=== PATIENT | male | born 1965 | race Caucasian/White ===

== ENCOUNTER 2024-08-11 22:26 | Inpatient (IN) | payer BC, SELFPAY ==
--- NOTE | ~2024-08-11 | XR_ITS ---
EXAMINATION: XR chest 1V portable DATE: 08/11/2024 22:44 INDICATION: Chest pain TECHNIQUE: frontal view of the chest was obtained. COMPARISON: Chest radiograph dated 10/09/2013 FINDINGS: Calcified nodule in the lateral right midlung zone consistent with old granulomatous disease. Pulmona ry vascular congestion without elba pulmonary edema. No other airspace opacities, pleural effusion o r pneumothorax. The cardiomediastinal silhouette is normal. Visualized bones and soft tissues are unr emarkable. IMPRESSION: 1. Pulmonary vascular congestion without elba pulmonary edema. Reviewed, dictated and finalized at location [facility]. [facility]
[2024-08-11 22:20] VITALS: BP 141/95; PULSE 66; RESP 15; TEMP 36.6; O2SAT 99
[2024-08-11 22:29] VITALS: BP 144/99; PULSE 63; PULSE 72; RESP 14; O2SAT 100; O2SAT 96
--- NOTE | 2024-08-11 22:30 | ECG_ITS ---
Test Date: 2024-08-11 22:45:38 Measurements Intervals [place] Rate: 63 P: 38 [place]: 134 QRS: 32 QRSD: 110 T: 50 QT: 391 QTc: 400 Interpretive Statements SINUS RHYTHM INTRAVENTRICULAR CONDUCTION DELAY CANNOT R/O SEPTAL INFARCT, AGE INDETERMINATE ANTERIOR ST ELEVATION MYOCARDIAL INJURY- ACUTE BASELINE ARTIFACT- I, II, AVR, AVL, AVF ABNORMAL ECG No previous ECG available for comparison Electronically Signed On 08-12-2024 06:33:05 SUPERVISOR WHEEL [employer]OP by Jason Laguna D.O.
[2024-08-11 22:32] LABS: Glucose Point of Care 193 mg/dl (65-105)
[2024-08-11] MEDS: HEPARIN SODIUM 5,000 UNITS/ML VIAL 4000 UNITS IV PUSH (22:34)
[2024-08-11] MEDS: MORPHINE SULFATE (*CRX) 4 MG/ML INJ IV PUSH (22:35)
[2024-08-11] MEDS: HEPARIN SOD/D5W 100 UNITS/ML 25,000 UNITS/250 ML BAG 9 UNITS IV CONT (22:39)
[2024-08-11 22:40] LABS: Basophils Absolute Auto 0.1 K/mm3 (0.0-0.1); Basophils Percent Auto 1.1 % (0.2-1.2); Eosinophils Absolute Auto 0.4 K/mm3 (0-0.3); Eosinophils Percent Auto 3.1 % (0-4.4); Hematocrit 45.5 % (42.0-52.0); Hemoglobin 15.6 g/dL (14.0-18.0); Immature Granulocyte Absolute 0.02 K/mm3 (0.00-0.031); Immature Granulocyte Percent A 0.2 % (0-0.5); Lymphocytes Absolute Auto 3.89 K/mm3 (0.9-3.2); Lymphocytes Percent Auto 34.6 % (18.3-44.2); Mean Corpuscular HGB Conc 34.3 g/dl (32-36); Mean Corpuscular Hemoglobin 31.1 pg (26-34); Mean Corpuscular Volume 90.6 fl (80-100); Mean Platelet Volume 10.2 fl (7.4-10.4); Monocytes Absolute Auto 1.4 K/mm3 (0.1-0.6); Monocytes Percent Auto 12.1 % (2.6-8.5); Neutrophils Absolute Auto 5.5 K/mm3 (1.3-6.7); Neutrophils Percent Auto 48.9 % (45.5-73.1); Platelet Count Result 240 k/mm3 (150-375); Red Blood Count 5.02 M/mm3 (4.6-6.20); Red Cell Distribution Width 14.2 % (11.5-14.5); White Blood Count 11.2 K/mm3 (4.5-10.0)
--- NOTE | 2024-08-11 22:40 | ED_ITS ---
HPI - General Adult General Chief complaint: Chest Pain Stated complaint: STEMI History of Present Illness HPI narrative: Patient is a 58-year-old gentleman who presents emergency department with chief complaint of chest pain. Patient reports that he started having a burning like sensation heaviness sensation yesterday the sick patient reports that he has been on and off reports that it has not really improved by anything worsened by anything the patient was given aspirin and nitro in the field by EMS the patient states that his discomfort is a little bit better of the reports that he still having some discomfort. The patient also reports that he has prior history of abdominal aortic aneurysm Related Data Allergies Allergy/AdvReac Type Severity Reaction Status Date / Time No Known Allergies Allergy Mild Verified 08/11/24 22:29 Review of Systems Review of Systems: A 10 system review of systems was completed on the patient and is negative except for what is stated in the HPI. Nursing and ancillary documentation was reviewed. Exam Narrative: GENERAL: Well-appearing, well-nourished, and in no acute distress. HEAD: Normocephalic, atraumatic. EYES: PERRLA and EOMI. ENT: Nares clear, no rhinorrhea or epistaxis. Mucous membranes moist. NECK: Supple. CHEST: Clear to auscultation. No respiratory distress. HEART: Regular rate and rhythm. No murmur heard. Normal peripheral pulses. ABDOMEN: Soft, nontender, nondistended, normal active bowel sounds. EXTREMITIES: Normal range of motion. No edema. SKIN: Warm, dry, no rash. NEURO: No focal deficits. Alert and oriented x3. PSYCH: Normal mood and affect. Course Vital Signs Vital signs: Vital Signs Temperature 36.6 C 08/11/24 22:20 Pulse Rate 66 08/11/24 22:20 Respiratory Rate 15 08/11/24 22:20 Blood Pressure 141/95 H 08/11/24 22:20 Pulse Oximetry 99 08/11/24 22:20 Oxygen Delivery Room Air 08/11/24 22:20 Temperature 36.6 C 08/11/24 22:20 Pulse Rate 63 08/11/24 22:29 Respiratory Rate 14 08/11/24 22:29 Blood Pressure 144/99 H 08/11/24 22:29 Pulse Oximetry 96 08/11/24 22:29 Oxygen Delivery Room Air 08/11/24 22:29 Medical Decision Making [facility] Narrative Medical decision making narrative: Differential diagnosis includes unstable angina, ST-elevation VT, non-STEMI Pre-hospital EKG showed ST elevation concerning for possible ST-elevation VT. The patient was brought in as a activation of a STEMI alert on the patient upon arrival to our facility EKG showed no significant ST elevation. This was discussed with the manager port to his reviewed both the pre- hospital EKG and the initial EKG at our facility at this time the plan will be to control the patient's pain and repeat EKG and start heparin on the patient. Repeat EKG showed ST elevations present and V3 V4 V5. This was rediscussed with Interventional Cardiology who will take patient to the laboratory assistant as a activated ST-elevation VT Vital Signs Vital Signs: Vital Signs Temperature 36.6 C 08/11/24 22:20 Pulse Rate 66 08/11/24 22:20 Respiratory Rate 15 08/11/24 22:20 Blood Pressure 141/95 H 08/11/24 22:20 Pulse Oximetry 99 08/11/24 22:20 Oxygen Delivery Room Air 08/11/24 22:20 Temperature 36.6 C 08/11/24 22:20 Pulse Rate 63 08/11/24 22:29 Respiratory Rate 14 08/11/24 22:29 Blood Pressure 144/99 H 08/11/24 22:29 Pulse Oximetry 96 08/11/24 22:29 Oxygen Delivery Room Air 08/11/24 22:29 Lab Data 08/11/24 22:35 08/11/24 22:35 Labs: Lab Results 08/11/24 08/11/24 Range/Units 22:29 22:35 WBC 11.2 H (4.5-10.0) K/mm3 RBC 5.02 (4.6-6.20) M/mm3 Hgb 15.6 (14.0-18.0) g/dL Hct 45.5 (42.0-52.0) % MCV 90.6 (80-100) fl MCH 31.1 (26-34) pg MCHC 34.3 (32-36) g/dl RDW 14.2 (11.5-14.5) % Plt Count 240 (150-375) k/mm3 MPV 10.2 (7.4-10.4) fl Immature Gran % (Auto) 0.2 (0-0.5) % Neut % (Auto) 48.9 (45.5-73.1) % Lymph % (Auto) 34.6 (18.3-44.2) % [place] % (Auto) 12.1 H (2.6-8.5) % Eos % (Auto) 3.1 (0-4.4) % Baso % (Auto) 1.1 (0.2-1.2) % Lymph # (Auto) 3.89 H (0.9-3.2) K/mm3 [place] # (Auto) 1.4 H (0.1-0.6) K/mm3 Eos # (Auto) 0.4 H (0-0.3) K/mm3 Baso # (Auto) 0.1 (0.0-0.1) K/mm3 Abs Immat Gran (auto) 0.02 (0.00-0.031) K/mm3 Absolute Neuts (auto) 5.5 (1.3-6.7) K/mm3 Absolute Nucleated RBC 0.000 (0.0-0.012) K/mm3 Nucleated RBC % 0.0 (0.0-0.2) % PT 13.5 (11.1-14.7) Seconds INR 1.0 APTT 28.2 (22.3-36.8) Seconds Sodium 142 (137-145) mmol/L Potassium 3.9 (3.4-5.0) mmol/L Chloride 108 H (98-107) mmol/L Carbon Dioxide 22 (22-30) mmol/L Anion Gap 12 (4-12) mmol/L BUN 24 H (9-20) mg/dL Creatinine 1.00 (0.7-1.3) mg/dL Estim Creat Clear Calc 72 ml/min Estimated GFR > 60 (59 - ) Glucose 201 H (65-110) mg/dL POC Capillary Glucose 193 H (65-105) mg/dl Calcium 9.3 (8.4-10.2) mg/dL Total Bilirubin 0.4 (0.2-1.3) mg/dL AST 43 (17-59) U/L ALT 30 (6-50) U/L Alkaline Phosphatase 69 (38-126) U/L Troponin I Pending NT-Pro-B Natriuret Pep Pending Total Protein 7.0 (6.3-8.2) g/dL Albumin 4.2 (3.5-5.1) g/dL Lipase 80 (23-300) U/L Critical Care Time Critical Care Time Critical Care Time: Yes Total Critical Care Time: 75 Discharge Plan Discharge Clinical Impression: ST elevation (STEMI) myocardial infarction Patient Disposition: Still a Patient Condition: Stable Follow-up/Referrals: PHYSICIAN,SLAG PRODUCTION WORKER [Primary Care Provider] - Time of Disposition: 22:55
--- NOTE | 2024-08-11 22:43 | ECG_ITS ---
Test Date: 2024-08-11 22:26:47 Measurements Intervals [place] Rate: 61 P: 47 ND: 133 QRS: 50 QRSD: 89 T: 61 QT: 372 QTc: 375 Interpretive Statements SINUS RHYTHM CANNOT R/O SEPTAL INFARCT, AGE INDETERMINATE ANTERIOR ST ELEVATION- CONSIDER ACUTE INJURY OR EARLY REPOLARIZATION ABNORMALITY No previous ECG available for comparison Electronically Signed On 08-12-2024 06:33:41 METHODS STUDY ANALYST by Jason Laguna D.O.
[2024-08-11 22:50] LABS: Alanine Aminotransferase 30 U/L (6-50); Albumin Level 4.2 g/dL (3.5-5.1); Alkaline Phosphatase 69 U/L (38-126); Anion Gap 12 mmol/L (4-12); Aspartate Amino Transferase 43 U/L (17-59); Bilirubin,Total 0.4 mg/dL (0.2-1.3); Blood Urea Nitrogen 24 mg/dL (9-20); Calcium 9.3 mg/dL (8.4-10.2); Carbon Dioxide 22 mmol/L (22-30); Chloride 108 mmol/L (98-107); Estimated CRCL calculation 72 ml/min; Estimated Glomerular Filt Rate > 60; Glucose 201 mg/dL (65-110); Lipase 80 U/L (23-300); Potassium 3.9 mmol/L (3.4-5.0); Sodium 142 mmol/L (137-145)
[2024-08-11 22:52] LABS: Partial Thromboplastin Time 28.2 Seconds (22.3-36.8); Prothrombin Time 13.5 Seconds (11.1-14.7)
[2024-08-11 22:55] VITALS: BP 126/84; PULSE 60; RESP 18; O2SAT 94
[2024-08-11 23:02] LABS: NT Pro B Type Natriuretic Pept 26 pg/mL (19.9-100); Troponin I < 0.012 ng/mL (0.000-0.034)
[2024-08-11] MEDS: HYDROmorphone HCL INJ (*CRX) 1 MG/ML SYR IV PUSH (23:03)
[2024-08-12] VITALS (20 sets, daily range): BP systolic 96–124; BP diastolic 59–87; PULSE 56–85; RESP 6–22; TEMP 36.5–36.9; O2SAT 86–99; BMI 25.6
--- NOTE | 2024-08-12 00:07 | PM.IMHP ---
H&P: HPI History of Present Illness Date/Time: Date of service August 11, 2024 Chief Complaint: chest pain Narrative: this 58-year-old patient who is smoker, diabetic history of hypertension who presents here to the hospital with intermittent chest pain for the last couple days. However tonight the pain became severe and intense. It was central in location with radiation to the left arm. EKG initially was showed ST elevations by EMS however on arrival to the ER the EKG looked much better but he was still having chest pain. We decided to wait for 5 minutes and give sublingual nitroglycerin and heparin and evaluate and repeat EKG shows more ST elevations and therefore we decided to do heart catheterization. Review of Systems Review of Systems: All systems reviewed & are unremarkable except as noted in HPI and below Constitutional: Constitutional: Denies chills, Denies fatigue, Denies fever(s), Denies headache(s) and Denies snoring Eyes: Eyes: Denies eye discharge and Denies loss of vision ENT: Denies dizziness, Denies headache(s), Denies nasal discharge and Denies sore throat Cardiovascular: Cardiovascular: Reports as per HPI, Reports chest pain, Denies syncope, Denies rapid heart rate, Denies leg edema, Denies dyspnea, Denies dyspnea on exertion, Denies orthopnea and Denies paroxysmal nocturnal dyspnea Respiratory: Respiratory: Denies chest congestion, Denies cough, Reports dyspnea, Reports dyspnea on exertion, Denies snoring and Denies wheezing Gastrointestinal: Gastrointestinal: Denies abdominal pain, Denies diarrhea, Denies nausea and Denies vomiting Genitourinary: Genitourinary: Denies hematuria, Denies dysuria, Denies flank pain and Denies urinary frequency Musculoskeletal: Musculoskeletal: Denies myalgias, Denies arthralgias and Denies joint swelling Neurologic: Denies Abnormal speech present, Denies dizziness, Denies syncope, Denies headache(s), Denies focal weakness and Denies loss of vision Psychiatric: Psychiatric: Denies anxiety and Denies depression Endocrine: Endocrine: Denies cold intolerance, Denies fatigue and Denies heat intolerance Hematologic/Lymphatic: Hematologic/Lymphatic: Denies easy bleeding and Denies easy bruising Allergic/Immunologic: Allergic/Immunologic: Denies urticaria and Denies wheezing PMFSH Past Medical History Medical History (Updated 08/12/24 @ 00:11 by Minda Purcell MD) Hyperlipidemia Hypertension Comments patient is smoker Meds Home Medications and Allergies Allergies Allergy/AdvReac Type Severity Reaction Status Date / Time No Known Allergies Allergy Mild Verified 08/11/24 22:29 Vital Signs Vital Signs - 24 hr 08/11/24 22:20 08/11/24 22:29 08/11/24 22:29 Temperature 36.6 C Pulse Rate 66 72 Respiratory Rate 15 Blood Pressure 141/95 H Pulse Oximetry 99 100 Oxygen Delivery Room Air Room Air 08/11/24 22:29 08/11/24 22:55 Temperature Pulse Rate 63 60 Respiratory Rate 14 18 Blood Pressure 144/99 H 126/84 Pulse Oximetry 96 94 Oxygen Delivery Exam Const: General: cooperative, healthy appearing, comfortable, no acute distress, well developed and well nourished Nutritional Appearance: well nourished Orientation/consciousness: patient oriented x3 HENMT: Head: normal to inspection, normocephalic and atraumatic Ears: hearing grossly normal bilaterally and external ears normal Face/Nose/Sinus: Normal external nose present, Normal nares present, normal facial exam and No erythema Face and sinus: normal facial exam and no erythema Mouth: Yes moist mucous membranes and No lip abnormal Throat: uvula midline Eyes: General: appearance normal, both eyes and all related structures Eyelids: eyelids normal Sclera: sclerae normal Neck: Neck: normal visual inspection and full ROM Thyroid: thyroid normal Carotids: no bruits Lymphatic: lymphedema not noted Chest: Chest palpation & inspection: normal inspection of the chest and normal palpation of entire chest wall Resp: Effort & Inspection: normal respiratory effort and not labored Auscultation: clear to auscultation bilaterally, no crackles, no rales and no wheezes Cardio: Jugular venous distension: no JVD Rate: regular rate Rhythm: regular rhythm Heart sounds: S1 normal heart sound present, S2 normal heart sound present, no click, no gallops, no murmurs and no rubs Bruits: no carotid bruits GI: Inspection: normal to inspection and non-distended GI Palp: No abdominal tenderness Auscultation: normal bowel sounds Rectal Exam: deferred : General: No CVA tenderness and Yes no CVA tenderness Back/Spine/Pelvis: Back: no CVA tenderness, No CVA tenderness and No erythema Cervical Spine: cervical ROM normal Skin: General skin exam: normal color, no erythema and no pallor Lesions: no lesions Rashes: no rashes Neuro: General: patient oriented x3 and moves all extremities Cranial nerves: Yes facial symmetry Speech: normal speech Motor exam (neuro): 5/5 motor strength present throughout Extrem: General: normal to inspection and full ROM Psych: Appearance: grossly normal, well kempt and disheveled Affect: normal affect H&P: Results Labs Labs: Short CBC 08/11/24 Range/Units 22:35 WBC 11.2 H (4.5-10.0) K/mm3 Hgb 15.6 (14.0-18.0) g/dL Hct 45.5 (42.0-52.0) % Plt Count 240 (150-375) k/mm3 BMP 08/11/24 22:35 Sodium 142 Potassium 3.9 Chloride 108 H Carbon Dioxide 22 BUN 24 H Creatinine 1.00 Glucose 201 H Calcium 9.3 Cardiac Enzymes 08/11/24 Range/Units 22:35 Troponin I < 0.012 (0.000-0.034) ng/mL Liver Function 08/11/24 Range/Units 22:35 Total Bilirubin 0.4 (0.2-1.3) mg/dL AST 43 (17-59) U/L ALT 30 (6-50) U/L Alkaline Phosphatase 69 (38-126) U/L Albumin 4.2 (3.5-5.1) g/dL Assessment and Plan Assessment and plan (1) ST elevation (STEMI) myocardial infarction: Code(s): I21.3 - ST elevation (STEMI) myocardial infarction of unspecified site Status: Acute Assessment and Plan: in regards to a STEMI, EKG shows anterior STEMI. Risks and benefits of cardiac catheterization discussed with the patient agrees to proceed. Will proceed in emergency fashion (2) Hyperlipidemia: Code(s): E78.5 - Hyperlipidemia, unspecified Status: Acute Assessment and Plan: Check lipid panel (3) Diabetes mellitus: Code(s): E11.9 - Type 2 diabetes mellitus without complications Status: Acute Assessment and Plan: check hemoglobin A1c and start sliding scale (4) Hypertension: Code(s): I10 - Essential (primary) hypertension Status: Acute Assessment and Plan: assess and verify home medications and restart
--- NOTE | 2024-08-12 00:12 | P.SEDATION_ITS ---
Moderate Sedation Note-Pt Data Patient Data Diagnosis: STEMI Present Complaint: chest pain Procedure to be performed/Plan: coronary angiogram Allergies Allergy/AdvReac Type Severity Reaction Status Date / Time No Known Allergies Allergy Mild Verified 08/11/24 22:29 Current Medications: Active Medications Heparin Sodium (Porcine) (Heparin Sodium 5,000 Units/Ml Vial) 4,000 units IV PUSH PRN PRN PRN Reason: aPTT less than 55 seconds Heparin Sodium (Porcine) (Heparin Sodium 5,000 Units/Ml Vial) 3,000 units IV PUSH PRN PRN PRN Reason: aPTT 55 - 70 seconds Heparin Sodium/Dextrose (Heparin Sodium/D5w 100 Units/Ml) 25,000 units in 250 mls @ 9 mls/hr IV CONT .Q24H SHANE; Protocol Last Admin: 08/11/24 22:39 Dose: 900 units/hr, 9 mls/hr Nitroglycerin (Nitroglycerin Sl 0.4 Mg Tablet) 0.4 mg SUBLINGUAL Q5MIN PRN PRN Reason: Chest Pain Sedation/Anesthesia: No previous sedation/anesthesia problems (including family history). [facility] Past Medical History Medical History (Updated 08/12/24 @ 00:11 by Minda Purcell MD) Hyperlipidemia Hypertension Mod Sed Physical Exam Physical Exam Pre Procedural Exam: Normal: Appearance, Eyes, Ears, Nose, Neck, Throat, Airway, Lungs, Heart Size, Heart Rate, Heart Rhythm, Neuro Exam, Abdomen, Liver, Kidneys, Spleen, Breasts, Genitalia, Extremities and Skin Hours since solid foods: 8 Hours since liquid intake: 8 Mallampati Classification: class 1 Internal Medicine - PN: Obj Da Vital Signs Vital Signs: Vital Signs - 24 hr 08/11/24 22:20 08/11/24 22:29 08/11/24 22:29 Temperature 36.6 C Pulse Rate 66 72 Respiratory Rate 15 Blood Pressure 141/95 H Pulse Oximetry 99 100 Oxygen Delivery Room Air Room Air 08/11/24 22:29 08/11/24 22:55 Temperature Pulse Rate 63 60 Respiratory Rate 14 18 Blood Pressure 144/99 H 126/84 Pulse Oximetry 96 94 Oxygen Delivery Meds/Results Medications: Active Medications Generic Name Dose Route Start Last Admin Trade Name Freq PRN Reason Stop Dose Admin Heparin Sodium (Porcine) 4,000 units 08/11/24 22:29 Heparin Sodium 5,000 Units/Ml Vial IV PUSH PRN PRN aPTT less than 55 seconds Heparin Sodium (Porcine) 3,000 units 08/11/24 22:29 Heparin Sodium 5,000 Units/Ml Vial IV PUSH PRN PRN aPTT 55 - 70 seconds Heparin Sodium/Dextrose 25,000 units in 250 mls @ 9 mls/hr 08/11/24 22:30 22:39 Heparin Sodium/D5w 100 Units/Ml IV CONT 900 units/hr .Q24H SHANE 9 mls/hr Administration Protocol 900 UNITS/HR Nitroglycerin 0.4 mg 08/11/24 22:30 Nitroglycerin Sl 0.4 Mg Tablet SUBLINGUAL Q5MIN PRN Chest Pain Labs 08/11/24 22:35 08/11/24 22:35 Labs: Laboratory Results - last 24 hr 08/11/24 08/11/24 22:29 22:35 WBC 11.2 H RBC 5.02 Hgb 15.6 Hct 45.5 MCV 90.6 MCH 31.1 MCHC 34.3 RDW 14.2 Plt Count 240 MPV 10.2 Immature Gran % (Auto) 0.2 Neut % (Auto) 48.9 Lymph % (Auto) 34.6 [place] % (Auto) 12.1 H Eos % (Auto) 3.1 Baso % (Auto) 1.1 Lymph # (Auto) 3.89 H [place] # (Auto) 1.4 H Eos # (Auto) 0.4 H Baso # (Auto) 0.1 Abs Immat Gran (auto) 0.02 Absolute Neuts (auto) 5.5 Absolute Nucleated RBC 0.000 Nucleated RBC % 0.0 PT 13.5 INR 1.0 APTT 28.2 Sodium 142 Potassium 3.9 Chloride 108 H Carbon Dioxide 22 Anion Gap 12 BUN 24 H Creatinine 1.00 Estim Creat Clear Calc 72 Estimated GFR > 60 Glucose 201 H POC Capillary Glucose 193 H Calcium 9.3 Total Bilirubin 0.4 AST 43 ALT 30 Alkaline Phosphatase 69 Troponin I < 0.012 NT-Pro-B Natriuret Pep 26 Total Protein 7.0 Albumin 4.2 Lipase 80 ASA Classification/Sedation ASA Classification/Sedation ASA Class: I Emergent: No Risks: Risks, benefits and alternatives explained and patient/family accepted plan for sedation. Patient re-evaluated immediately prior to sedation.
--- NOTE | 2024-08-12 00:13 | WPDCARDPROC ---
Cardiac Cath Procedure Note Date of procedure:: 08/12/24 Performing physician:: Minda Purcell MD date of service August 11, 2024 and finished procedure on August 12, 2024 Indication:: anterior STEMI Brief clinical history:: this 58-year-old patient who is smoker, diabetic history of hypertension who presents here to the hospital with intermittent chest pain for the last couple days. However tonight the pain became severe and intense. It was central in location with radiation to the left arm. EKG initially was showed ST elevations by EMS however on arrival to the ER the EKG looked much better but he was still having chest pain. We decided to wait for 5 minutes and give sublingual nitroglycerin and heparin and evaluate and repeat EKG shows more ST elevations and therefore we decided to do heart catheterization. Procedure Procedure performed:: 1-Moderate sedation that started at 2330 p.m.and ended at 12:01 a.m. for total duration 31 minutes using 2mg of Versed and 50mcg fentanyl. The registered nurse was terrence ho. 2-Selective left and right coronary angiogram. 3-Left heart catheterization with measurement of LVEDP and measurement of gradient across aortic valve. 4- LV angiogram 5- deployment of a drug-eluting stent trena 3 x 30 covering proximal LAD. 4-Right common femoral arterial angiogram. 5-Deployment of 6 Maltese Angio-Seal. Sedation/Medication given:: Moderate sedation. Access site:: Right common femoral artery. Estimated blood loss:: 10cc Procedure note:: After informed consent patient was brought in to matlab developer with the was draped and prepped in usual manner. Moderate sedation was given and the right groin was infiltrated using 1% lidocaine. Six Maltese sheath was obtained using micropuncture needle and the modified Seldinger technique. Selective left coronary angiogram was done using JL4 catheter with the tip of the catheter placed in the left main coronary artery. After that 6 Maltese guide catheter CLS 3.5 was advanced and engaged into the left main and then coronary wire Behavioral Health Assistant 150 was advanced across the total occlusion of the proximal LAD. Balloon angioplasty was done using 3 x 10 balloon with 3 inflations each under 7 atmospheres for 10 seconds. Then deployed a drug-eluting stent trena 3 x 30 covering proximal LAD under nominal pressure for 20 seconds. Selective right coronary angiogram was done using JR4 catheter with the tip of the catheter placed to the right coronary artery. After that 5 Maltese pigtail catheter was advanced across the aortic valve into the left ventricle with measurement of LVEDP and measurement of gradient across aortic valve. LV angiogram was done as well. Right common femoral arterial angiogram was done. Findings:: 1- left coronary artery is a large artery that divides into large LAD, large circumflex artery. 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 After putting a stent and bahai of LITO flow 3, we noticed that post stent that there is a lesion of about 40% and then downstream also another lesion about 30%. 3- leftcircumflex artery is a large artery. Proximally 30%. It gives rise to small OM 1 in the mid segment that has minimal irregularities. 4- right coronary artery is Large artery and dominant. Proximally there is aneurysmal segment followed by 50% lesion and then diffuse 30% stenosis in the mid segment. 5- LVEDP was 25 mm Hg and no gradient across aortic valve. 6- LV angiogram shows hypokinesis of the anterior and apical inferior wall. Estimated ejection fraction about 40% 6- opening arterial pressure was and closing pressure was 7- right femoral artery angiogram shows minimal plaque in right common femoral artery. Assessment and Plan Assessment and plan (1) ST elevation (STEMI) myocardial infarction: Code(s): I21.3 - ST elevation (STEMI) myocardial infarction of unspecified site Status: Acute Plan - Continue aspirin and Brilinta. - check hemoglobin A1c and lipid panel. - tobacco cessation. - obtain echocardiogram and EKG post catheterization. - ensure diabetic control and control of hypertension.
--- NOTE | 2024-08-12 00:41 | ECG_ITS ---
Test Date: 2024-08-12 00:47:52 Measurements Intervals [place] Rate: 76 P: 52 GA: 133 QRS: 80 QRSD: 97 T: 67 QT: 358 QTc: 405 Interpretive Statements SINUS RHYTHM CANNOT R/O SEPTAL INFARCT, AGE INDETERMINATE ANTEROLATERAL ST ELEVATION MYOCARDIAL INJURY- ACUTE ABNORMAL ECG Compared to ECG 08/11/2024 22:45:38 ST ELEVATION HAS INCREASED Electronically Signed On 08-12-2024 06:34:51 WEB EDITOR by Jason Laguna D.O.
--- NOTE | 2024-08-12 00:41 | ECG_ITS ---
Test Date: 2024-08-12 02:40:28 Measurements Intervals [place] Rate: 70 P: 43 OR: 137 QRS: 66 QRSD: 96 T: 87 QT: 370 QTc: 401 Interpretive Statements SINUS RHYTHM CANNOT R/O SEPTAL INFARCT, AGE INDETERMINATE ANTERIOR ST ELEVATION- RECENT INJURY BASELINE ARTIFACT- I, II, III, AVR, AVL, AVF, V1 ABNORMAL ECG Compared to ECG 08/12/2024 00:47:52 STEMI IS NOW RECENT Electronically Signed On 08-12-2024 06:36:36 FERRY TERMINAL AGENT by Jason Laguna D.O.
--- NOTE | 2024-08-12 00:50 | PC.NURSE ---
Dr. Purcell at bedside. Aware of patient increase oxygen requirement. States not to start IV fluids until patient's O2 requirements have decreased.
[2024-08-12 01:05] LABS: Cholesterol 127 mg/dL (0-200); HDL Direct 27 mg/dL; Triglycerides 299 mg/dL (<150)
[2024-08-12 01:07] LABS: Hemoglobin A1C 7.2 % (<5.7)
--- NOTE | 2024-08-12 01:14 | PC.NURSE ---
Daylight Savings Time For Daylight Savings Time Ending in the Fall - Clocks are moved back. For Daylight Savings Time Beginning in the Spring - Clocks are moved ahead. For [facility], the time of change occurs at 0200 hrs. Time is taken from the hot mill observer. This entry on the patient's chart recognizes the change in time reflected during documentation. Example: 2 entries for vital signs may be charted for 0200 hrs.
[2024-08-12 01:16] LABS: LDL Cholesterol Direct 64 mg/dL
--- NOTE | 2024-08-12 01:30 | P.CONIM_ITS ---
Assessment and Plan Assessment and plan (1) ST elevation (STEMI) myocardial infarction: Onset Date: 08/11/24 Code(s): I21.3 - ST elevation (STEMI) myocardial infarction of unspecified site Status: Acute Assessment and Plan: Patient presents with intermittent chest pain for a couple of days found to have anterior STEMI. * Status post PTCA/stent to a totally occluded proximal LAD with rastafari of LITO flow 3. * LV angiogram showed hypokinesis of the anterior and apical inferior wall with an EF estimated at 40%. * On aspirin and Bilinta per cardiology. (2) Coronary artery disease: Code(s): I25.10 - Atherosclerotic heart disease of tetlin coronary artery without angina pectoris Status: Acute Assessment and Plan: Presented with intermittent chest pain found to have anterior STEMI as above. * Status post stent to the proximal LAD. * Also with 30% stenosis of proximal circumflex, 50% stenosis proximal RCA, 30% stenosis in the mid RCA. (3) Acute respiratory failure with hypoxia: Code(s): J96.01 - Acute respiratory failure with hypoxia Status: Acute Assessment and Plan: Patient returned to the ICU from energy systems laboratory director and is currently on 8 L nasal cannula. * May be related to medication as his lung sounds are clear and chest x-ray was without significant findings. * Pulmonary embolism is considered but seems unlikely by history. * Wean oxygen as tolerated and if no improvement by morning a further workup will need to be pursued. (4) Hypertension: Code(s): I10 - Essential (primary) hypertension Status: Acute Assessment and Plan: Blood pressures were reviewed and they have been reasonable post cardiac catheterization. * Continue olmesartan 40 mg daily. (5) Hyperlipidemia: Code(s): E78.5 - Hyperlipidemia, unspecified Status: Acute Assessment and Plan: Currently on rosuvastatin 20 mg daily. * Check fasting lipids and consider dose increase if indicated. (6) Type 2 diabetes mellitus: Code(s): E11.9 - Type 2 diabetes mellitus without complications Status: Acute Assessment and Plan: Hemoglobin A1c today was 7.2%. * Hold metformin as he received contrast. * Continue empagliflozin 25 mg daily. * Initiate sliding scale insulin, Accu-Cheks, and hypoglycemic protocol. (7) Abdominal aortic aneurysm: Code(s): I71.40 - Abdominal aortic aneurysm, without rupture, unspecified Status: Acute Assessment and Plan: Followed closely by a vascular surgeon at [facility]. (8) Tobacco dependence: Code(s): F17.200 - Nicotine dependence, unspecified, uncomplicated Status: Acute Assessment and Plan: He smokes a pack of cigarettes per day and has for 40 years. * Smoking cessation is imperative and was discussed with the patient. Plan Thank you for allowing us to participate in this patient's care. Please do not hesitate to contact us with any questions. HPI Date of Consult Consult date: 08/12/24 Requesting Physician: Minda Purcell MD Primary Care Provider: UNKNOWN,DOCTOR Consult Narrative Reason for consult: medical management Narrative: This is a 58-year-old male smoker with history of abdominal aortic aneurysm, hypertension, dyslipidemia, type 2 diabetes mellitus, and gout whom the hospitalist service has been consulted for help managing his medical conditions. The patient presented to the emergency department via EMS last evening with heaviness and burning in the mid chest which started not long prior to arrival. Associated symptoms include mild shortness of breath and sweats. discomfort for the last couple of days. He received aspirin and nitroglycerin in the field per EMS with perhaps some mild improvement. Pre-hospital EKG showed ST elevations that resolved by the time he arrived to the emergency department. Due to ongoing chest pain repeat EKG was performed and showed more ST-elevation and he was taken to the energy systems laboratory director. He was found to have a totally occluded proximal LAD for which he is status post angioplasty with drug-eluting stent. I evaluated the patient in ICU not long after his procedure and he is resting comfortably and has no pain. He is currently on 8 L of oxygen though has no feelings of shortness of breath. He denies syncope, near syncope, current chest pain, cough, sinus congestion, sore throat, nausea, vomiting, orthopnea, paroxysmal nocturnal dyspnea, lower extremity edema, and calf pain. Regarding his medical problems, he believes they are well controlled on medications. He is followed by a vascular surgeon at [facility] for his abdominal aortic aneurysm. Review of Systems Review of Systems: 12 systems were reviewed and are negativ e except for as per HPI. [facility] Past Medical History Medical History (Reviewed 08/12/24 @ 01:52 [employer] GR[employer] by Tala Gomez PA-C) Abdominal aortic aneurysm Coronary artery disease Gastroesophageal reflux disease Gout Hyperlipidemia Hypertension Kidney stones ST elevation (STEMI) myocardial infarction (08/11/24) Status post PTCA/stent to the proximal LAD Tobacco dependence Type 2 diabetes mellitus Surgical History Surgical History (Reviewed 08/12/24 @ 01:52 [employer] by Tala Gomez PA-C) History of cardiac catheterization (08/11/24) PTCA/stent to the proximal LAD Family History Family History (Reviewed 08/12/24 @ 01:52 [employer] by Tala Gomez PA-C) Sibling Lung cancer Father Diabetes mellitus Hypertension Mother Hypertension Social History Social History (Reviewed 08/12/24 @ 01:52 [employer] GR[employer] by Tala Gomez PA-C) Social History: Surrogate medical decision maker: Tracy Marx. Code status: Full code. Smoking packs per day: 1 Smoking cigarettes per day: 20.0 Years smoked: 40 Smoking pack-years: 40.00 Smoking status: Current every day smoker Alcohol intake: never Substance use: never Substance use type: does not use Do You Feel Safe in your Home?: Yes Lack of Transportation: No Lack of Food: Never True Current Housing: I Have Housing Concerned About Future Housing: No Difficulty Paying Gas/Electric Bills: No Difficulty Paying for Meds: No Currently Unemployed: No Education: Trade/Vocational Certificate Difficulty w/ Childcare or Family Care: No Spiritual care concerns: No Meds Home Medications and Allergies Home Medications Medication Instructions Recorded Confirmed Type allopurinol 300 mg tablet 300 mg PO DAILY 08/12/24 08/12/24 History aspirin 81 mg tablet 81 mg PO DAILY 08/12/24 08/12/24 History empagliflozin 25 mg tablet 25 mg PO DAILY 08/12/24 08/12/24 History (Jardiance) metformin 500 mg tablet,extended 1,000 mg PO DAILY 08/12/24 08/12/24 History release 24 hr metoprolol succinate 100 mg 100 mg PO DAILY 08/12/24 08/12/24 History tablet,extended release 24 hr olmesartan 40 mg tablet 40 mg PO DAILY 08/12/24 08/12/24 History omeprazole 20 mg tablet,delayed 20 mg PO DAILY 08/12/24 08/12/24 History release rosuvastatin 20 mg tablet 20 mg PO DAILY 08/12/24 08/12/24 History Allergies Allergy/AdvReac Type Severity Reaction Status Date / Time No Known Allergies Allergy Mild Verified 08/11/24 22:29 Vital Signs Vital Signs - 24 hr 08/11/24 22:20 08/11/24 22:29 08/11/24 22:29 Temperature 97.9 F Pulse Rate 66 72 Respiratory Rate 15 Blood Pressure 141/95 H Pulse Oximetry 99 100 Oxygen Delivery Room Air Room Air 08/11/24 22:29 08/11/24 22:55 Temperature Pulse Rate 63 60 Respiratory Rate 14 18 Blood Pressure 144/99 H 126/84 Pulse Oximetry 96 94 Oxygen Delivery Exam Narrative: General: Nontoxic-appearing male supine in bed. Weight: 81.1 kg. BMI: 25.7. HEENT: Normocephalic, atraumatic. PERRL, EOMI. Sclera anicteric. Oral mucosa moist. Oropharynx clear. Neck: Supple. No carotid bruits. Respiratory: Lungs are clear to auscultation bilaterally. Cardiovascular: Regular rate and rhythm with S1-S2. Gastrointestinal: Abdomen is soft, nontender, and nondistended with positive bowel sounds. Genitourinary: Cath site is unremarkable. Skin: Warm and dry. Extremities: No cyanosis, clubbing, or edema. Radial and pedal pulses intact. Neurological: Alert. Cranial nerves 2-12 are grossly intact. No gross focal deficits to casual conversation. Psychiatric: Pleasant and cooperative with normal mood and affect. Judgment and insight intact. Results Labs 08/11/24 22:35 08/11/24 22:35 Labs: Short CBC 08/11/24 Range/Units 22:35 WBC 11.2 H (4.5-10.0) K/mm3 Hgb 15.6 (14.0-18.0) g/dL Hct 45.5 (42.0-52.0) % Plt Count 240 (150-375) k/mm3 BMP 08/11/24 22:35 Sodium 142 Potassium 3.9 Chloride 108 H Carbon Dioxide 22 BUN 24 H Creatinine 1.00 Glucose 201 H Calcium 9.3 Cardiac Enzymes 08/11/24 Range/Units 22:35 Troponin I < 0.012 (0.000-0.034) ng/mL Liver Function 08/11/24 Range/Units 22:35 Total Bilirubin 0.4 (0.2-1.3) mg/dL AST 43 (17-59) U/L ALT 30 (6-50) U/L Alkaline Phosphatase 69 (38-126) U/L Albumin 4.2 (3.5-5.1) g/dL Quality VTE Prophylaxis VTE prophylaxis: mechanical ordered If No VTE Prophylaxis Answer both mechanical and pharmacologic: Reason no pharmacologic proph: medical contraindication (patient on dual anti- platelet therapy, pharmacologic prophylaxis would put him at increased risk for bleeding) Hospitalist MIPS Advance Care Plan I have confirmed that the patient's Advanced Care Plan is present, code status is documented, or surrogate decision maker is listed in patient medical record.: Yes Medication Reconciliation I have utilized all available resources to obtain, update and review the patients current medications (includes all prescriptions, OTC, herbals, cannabis, and nutritional supplements).: Yes
--- NOTE | 2024-08-12 01:47 | ADMGEN ---
This patient, Brock Marx, was admitted to Intensive Care Unit-2 on 08-12-24 at 0024. Patient/family oriented to hospital policies and general routines including ID bracelet, bed and alarms, visiting hours, pain management, procedures, bathroom and other care routines, personal items, smoking policy, room service/diet, and visiting hours. Information on how to activate the Rapid Response Team has been discussed. Patient/Family are encouraged to report perceived risks to care and to ask questions if they do not understand what they are told or what they should do.
[2024-08-12 02:02] LABS: MRSA (PCR) NOT DETECTED (NOT DETECTE)
[2024-08-12] MEDS: SODIUM CHLORIDE 0.9% IV 1,000 ML 75 ML IV CONT (04:11)
--- NOTE | 2024-08-12 04:31 | ECG_ITS ---
Test Date: 2024-08-12 04:39:02 Measurements Intervals [place] Rate: 67 P: 45 MD: 130 QRS: 66 QRSD: 96 T: 87 QT: 409 QTc: 432 Interpretive Statements SINUS RHYTHM LOW QRS VOLTAGE IN LIMB LEADS CANNOT R/O SEPTAL INFARCT, AGE INDETERMINATE ANTERIOR MYOCARDIAL INFARCTION, PROBABLY RECENT BASELINE ARTIFACT- II, III, AVR, AVF ABNORMAL ECG Compared to ECG 08/12/2024 02:40:28 NO SIGNIFICANT CHANGE Electronically Signed On 08-12-2024 06:37:31 LICENSED ELECTRICIAN by Jason Laguna D.O.
[2024-08-12] MEDS: ACETAMINOPHEN 325 MG TABLET 650 MG PO (04:50)
[2024-08-12] MEDS: FUROSEMIDE INJ 40 MG/4 ML VIAL IV PUSH (05:09)
[2024-08-12 05:32] LABS: Anion Gap 6 mmol/L (4-12); Blood Urea Nitrogen 23 mg/dL (9-20); Calcium 8.9 mg/dL (8.4-10.2); Carbon Dioxide 25 mmol/L (22-30); Chloride 109 mmol/L (98-107); Estimated CRCL calculation 79 ml/min; Estimated Glomerular Filt Rate > 60; Glucose 191 mg/dL (65-110); Potassium 4.3 mmol/L (3.4-5.0); Sodium 140 mmol/L (137-145)
[2024-08-12 05:48] LABS: Troponin I > 80.000 ng/mL (0.000-0.034)
[2024-08-12 07:29] LABS: Glucose Point of Care 207 mg/dl (65-105)
[2024-08-12] MEDS: INSULIN ASPART (*BKC) 100 UNITS/ML SUB-Q ×3 (07:35→16:35)
--- NOTE | 2024-08-12 08:11 | WPDCNINT ---
Assessment and Plan Assessment and plan (1) ST elevation (STEMI) myocardial infarction: Onset Date: 08/11/24 Code(s): I21.3 - ST elevation (STEMI) myocardial infarction of unspecified site Status: Acute Assessment and Plan: Acute anterior STEMI status post PCI and stent placement of LAD Echo pending Continue aspirin Brilinta ARB beta-sofía statin Hemodynamic and telemetry monitoring (2) Type 2 diabetes mellitus: Code(s): E11.9 - Type 2 diabetes mellitus without complications Status: Acute Assessment and Plan: On Jardiance and sliding scale insulin (3) Tobacco dependence: Code(s): F17.200 - Nicotine dependence, unspecified, uncomplicated Status: Acute Assessment and Plan: Patient was counseled and encouraged to quit smoking (4) Hyperlipidemia: Code(s): E78.5 - Hyperlipidemia, unspecified Status: Acute Assessment and Plan: Rosuvastatin (5) Congestive heart failure: Code(s): I50.9 - Heart failure, unspecified Status: Acute Assessment and Plan: Elevated LVEDP, Hypoxia, bilateral crackles suggest congestive heart failure Patient has received Lasix and has improved and is now off of oxygen Echo is ordered and pending Plan DVT prophylaxis -Lovenox Stress ulcer prophylaxis -on PPI Nutrition -diet ordered Code Status - Full Code Total Critical Care Time - 30 minutes Due to a high probability of clinically significant, life threatening deterioration, the patient required my highest level of preparedness to intervene emergently and I personally spent this critical care time directly and personally managing the patient. This critical care time included obtaining a history; examining the patient; pulse oximetry; ordering and review of studies; arranging urgent treatment with development of a management plan; evaluation of patient's response to treatment; frequent reassessment; and discussions with other providers. It was exclusive of separately billable procedures and treating other patients and teaching time. Please see Assessment and Plan section and the rest of the note for further information on patient assessment and treatment Expressive Art Therapist Consult Note Consult date: 08/12/24 Reason for consult: STEMI HPI: rBock Marx is a 58 year old male T with past medical history of smoking, abdominal aortic aneurysm, hypertension, dyslipidemia, type 2 diabetes mellitus, and gout presented to ER with chief complaint of chest pain that started 20 minutes prior to presentation. Patient states he had an episode of pain on Tuesday evening which subsided by itself after 20 minutes. Pain was burning the middle of chest and radiated to his neck. Associated with sweating shortness of breath. Prior to that he was feeling fine and denied any fever, cough, dyspnea on exertion, orthopnea, PND. No dysuria hematuria hematochezia melena belly pain nausea vomiting diarrhea constipation. All other systems were reviewed and were negative He received aspirin and nitroglycerin in the field per EMS with perhaps some mild improvement. Pre-hospital EKG showed ST elevations that resolved by the time he arrived to the emergency department. Due to ongoing chest pain repeat EKG was performed and showed more ST-elevation and he was taken to the medical laboratory technician. He was found to have a totally occluded proximal LAD for which he is status post angioplasty with drug-eluting stent. He was hypoxic and received Lasix in the ICU. This morning he states this pain has significantly resolved any has a dull achy discomfort which he rates at 1/10 slightly worse with deep breathing but different from the chest pain that he presented with. He denies any shortness of breath at this time PMFSH Past Medical History Medical History Abdominal aortic aneurysm Coronary artery disease Gastroesophageal reflux disease Gout Hyperlipidemia Hypertension Kidney stones ST elevation (STEMI) myocardial infarction (08/11/24) Status post PTCA/stent to the proximal LAD Tobacco dependence Type 2 diabetes mellitus Surgical History Surgical History History of cardiac catheterization (08/11/24) PTCA/stent to the proximal LAD Family History Family History Sibling Lung cancer Father Diabetes mellitus Hypertension Mother Hypertension Social History Social History Social History: Surrogate medical decision maker: Trayc Marx. Code status: Full code. Smoking packs per day: 1 Smoking cigarettes per day: 20.0 Years smoked: 40 Smoking pack-years: 40.00 Smoking status: Current every day smoker Alcohol intake: never Substance use: never Substance use type: does not use Do You Feel Safe in your Home?: Yes Lack of Transportation: No Lack of Food: Never True Current Housing: I Have Housing Concerned About Future Housing: No Difficulty Paying Gas/Electric Bills: No Difficulty Paying for Meds: No Currently Unemployed: No Education: Trade/Vocational Certificate Difficulty w/ Childcare or Family Care: No Spiritual care concerns: No Meds Home Medications and Allergies Home Medications Medication Instructions Recorded Confirmed Type allopurinol 300 mg tablet 300 mg PO DAILY 08/12/24 08/12/24 History aspirin 81 mg tablet 81 mg PO DAILY 08/12/24 08/12/24 History empagliflozin 25 mg tablet 25 mg PO DAILY 08/12/24 08/12/24 History (Jardiance) metformin 500 mg tablet,extended 1,000 mg PO DAILY 08/12/24 08/12/24 History release 24 hr metoprolol succinate 100 mg 100 mg PO DAILY 08/12/24 08/12/24 History tablet,extended release 24 hr olmesartan 40 mg tablet 40 mg PO DAILY 08/12/24 08/12/24 History omeprazole 20 mg tablet,delayed 20 mg PO DAILY 08/12/24 08/12/24 History release rosuvastatin 20 mg tablet 20 mg PO DAILY 08/12/24 08/12/24 History Allergies Allergy/AdvReac Type Severity Reaction Status Date / Time No Known Allergies Allergy Mild Verified 08/11/24 22:29 Vital Signs Vital Signs - 24 hr 08/11/24 22:20 08/11/24 22:29 08/11/24 22:29 Temperature 36.6 C Pulse Rate 66 72 Respiratory Rate 15 Blood Pressure 141/95 H Pulse Oximetry 99 100 Oxygen Delivery Room Air Room Air Oxygen Flow Rate 08/11/24 22:29 08/11/24 22:55 08/12/24 00:30 Temperature 36.6 C Pulse Rate 63 60 79 Respiratory Rate 14 18 19 Blood Pressure 144/99 H 126/84 117/86 Pulse Oximetry 96 94 86 L Oxygen Delivery Oxygen Flow Rate 08/12/24 00:45 08/12/24 01:00 BRAKE REPAIRER RAILROAD 08/12/24 01:15 BRAKE REPAIRER RAILROAD Temperature Pulse Rate 80 81 85 Respiratory Rate 16 17 22 H Blood Pressure 119/79 119/81 124/87 Pulse Oximetry 92 93 95 Oxygen Delivery Oxygen Flow Rate 08/12/24 01:30 BRAKE REPAIRER RAILROAD 08/12/24 01:30 CDT 08/12/24 01:45 CDT Temperature Pulse Rate 81 76 75 Respiratory Rate 18 12 18 Blood Pressure 114/81 100/75 105/68 Pulse Oximetry 95 94 96 Oxygen Delivery Oxygen Flow Rate 08/12/24 02:00 08/12/24 02:00 08/12/24 00:30 Temperature Pulse Rate 73 65 Respiratory Rate 17 Blood Pressure 104/72 Pulse Oximetry 99 92 Oxygen Delivery High Flow Nasal Cannula Oxygen Flow Rate 12 08/12/24 04:00 08/12/24 04:27 08/12/24 04:00 Temperature 36.9 C Pulse Rate 64 66 Respiratory Rate 18 Blood Pressure 107/72 Pulse Oximetry 96 94 Oxygen Delivery High Flow Nasal Cannula Oxygen Flow Rate 7 08/12/24 06:00 08/12/24 06:00 08/12/24 06:44 Temperature Pulse Rate 67 67 Respiratory Rate 10 L Blood Pressure 121/75 115/80 Pulse Oximetry 96 Oxygen Delivery Oxygen Flow Rate Exam Narrative: General: Pt is alert awake and in NAD Lungs/Chest: Trachea central Clear BS B/L, bibasilar crackles present Cardiac: RRR. Normal S1 S2. No murmurs Circulation: Bilateral dorsalis pedis Pedal pulses are intact and symmetrical. Abdomen: Normal bowel sounds.. Soft. NT. ND. Extremities: No clubbing, cyanosis or edema. Warm : [place] in place Neurologic: Follows commands. Moves all 4 extremities PERRL Skin: No Rash Results Labs 08/11/24 22:35 08/12/24 05:11 Labs: Short CBC 08/11/24 Range/Units 22:35 WBC 11.2 H (4.5-10.0) K/mm3 Hgb 15.6 (14.0-18.0) g/dL Hct 45.5 (42.0-52.0) % Plt Count 240 (150-375) k/mm3 [facility] 08/11/24 08/12/24 22:35 05:11 Sodium 142 140 Potassium 3.9 4.3 Chloride 108 H 109 H Carbon Dioxide 22 25 BUN 24 H 23 H Creatinine 1.00 0.90 Glucose 201 H 191 H Calcium 9.3 8.9 Cardiac Enzymes 08/11/24 08/12/24 08/12/24 Range/Units 22:35 01:35 BRAKE REPAIRER RAILROAD 05:11 Troponin I < 0.012 62.600 H* D > 80.000 H* D (0.000-0.034) ng/mL Liver Function 08/11/24 Range/Units 22:35 Total Bilirubin 0.4 (0.2-1.3) mg/dL AST 43 (17-59) U/L ALT 30 (6-50) U/L Alkaline Phosphatase 69 (38-126) U/L Albumin 4.2 (3.5-5.1) g/dL Imaging Radiologist's impression: Pulmonary congestion
[2024-08-12] MEDS: NITROGLYCERIN SL 0.4 MG TABLET SUBLINGUAL (09:30)
[2024-08-12] MEDS: PANTOPRAZOLE 40 MG TABLET PO (09:32)
[2024-08-12] MEDS: allopurinoL 300 MG TABLET PO (09:32)
[2024-08-12] MEDS: ENOXAPARIN 40 MG/0.4 ML SYRINGE SUB-Q (09:32)
[2024-08-12] MEDS: ROSUVASTATIN 20 MG TABLET PO (09:33)
[2024-08-12] MEDS: EMPAGLIFLOZIN 25 MG TABLET PO (09:33)
[2024-08-12] MEDS: ASPIRIN 81 MG ENTERIC TABLET PO (09:33)
[2024-08-12] MEDS: TICAGRELOR 90 MG TABLET PO ×2 (09:33→20:17)
[2024-08-12] MEDS: OLMESARTAN MEDOXOMIL 20 MG TABLET 40 MG PO (09:34)
--- NOTE | 2024-08-12 11:02 | ECG_ITS ---
Test Date: 2024-08-12 11:38:19 Measurements Intervals [place] Rate: 56 P: 40 [place]: 123 QRS: 60 QRSD: 97 T: 98 QT: 441 QTc: 426 Interpretive Statements SINUS BRADYCARDIA LOW QRS VOLTAGE IN LIMB LEADS ANTEROLATERAL MYOCARDIAL INFARCTION, PROBABLY RECENT ABNORMAL ECG Compared to ECG 08/12/2024 04:39:02 HEART RATE HAS DECREASED Electronically Signed On 08-12-2024 12:54:09 JOURNEYMAN ELECTRICIAN PV INSTALLER by Jason Laguna D.O.
--- NOTE | 2024-08-12 11:07 | P.PNCA_ITS ---
Progress Note: A&P Assessment and Plan (1) ST elevation (STEMI) myocardial infarction: Onset Date: 08/11/24 Code(s): I21.3 - ST elevation (STEMI) myocardial infarction of unspecified site Status: Acute Assessment and Plan: continue aspirin, Brilinta. continue high-intensity statin. - has some chest pain today that seems more pleuritic. Obtain EKG. (2) Hypertension: Code(s): I10 - Essential (primary) hypertension Status: Acute Assessment and Plan: Blood pressure controlled. Continue olmesartan. (3) Hyperlipidemia: Code(s): E78.5 - Hyperlipidemia, unspecified Status: Acute Assessment and Plan: Continue high dose statin (4) Abdominal aortic aneurysm: Code(s): I71.40 - Abdominal aortic aneurysm, without rupture, unspecified Status: Acute Assessment and Plan: make sure the blood pressure is controlled. will start today Toprol-XL 25 mg daily. I believe he takes beta-blockers at home. (5) Diabetes mellitus: Code(s): E11.9 - Type 2 diabetes mellitus without complications Status: Acute Assessment and Plan: Hemoglobin A1c 7.2. Optimize blood sugar control. Subjective Date/time seen: 08/12/24 11:07 this 58-year-old patient who is smoker, diabetic history of abdominal aortic aneurysm, hypertension who presents here to the hospital with intermittent chest pain for the last couple days. However tonight the pain became severe and intense. It was central in location with radiation to the left arm. EKG initially was showed ST elevations by EMS however on arrival to the ER the EKG looked much better but he was still having chest pain. We decided to wait for 5 minutes and give sublingual nitroglycerin and heparin and evaluate and repeat EKG shows more ST elevations and therefore we decided to do heart catheterization. Interval history: Date of service 08/12/2024- resting comfortably in bed. Has mild central chest pain 3/10 and then increases with inspiration to 5/10. Maintaining sinus rhythm. Cath site without any hematoma or bleeding. Review of Systems Review of Systems: All systems reviewed & are unremarkable except as noted in HPI and below Constitutional: Constitutional: Denies chills, Denies fatigue, Denies fever(s), Denies headache(s) and Denies snoring Eyes: Eyes: Denies eye discharge and Denies loss of vision ENT: Denies dizziness, Denies headache(s), Denies nasal discharge and Denies sore throat Cardiovascular: Cardiovascular: Reports as per HPI, Reports chest pain, Denies syncope, Denies rapid heart rate, Denies leg edema, Reports dyspnea, Reports dyspnea on exertion, Denies orthopnea and Denies paroxysmal nocturnal dyspnea Respiratory: Respiratory: Denies chest congestion, Denies cough, Reports dyspnea, Reports dyspnea on exertion, Denies snoring and Denies wheezing Gastrointestinal: Gastrointestinal: Denies abdominal pain, Denies diarrhea, Denies nausea and Denies vomiting Genitourinary: Genitourinary: Denies hematuria, Denies dysuria, Denies flank pain and Denies urinary frequency Musculoskeletal: Musculoskeletal: Denies myalgias, Denies arthralgias and Denies joint swelling Neurologic: Denies Abnormal speech present, Denies dizziness, Denies syncope, Denies headache(s), Denies focal weakness and Denies loss of vision Psychiatric: Psychiatric: Denies anxiety and Denies depression Endocrine: Endocrine: Denies cold intolerance, Denies fatigue and Denies heat intolerance Hematologic/Lymphatic: Hematologic/Lymphatic: Denies easy bleeding and Denies easy bruising Allergic/Immunologic: Allergic/Immunologic: Denies urticaria and Denies wheezing Exam Const: General: cooperative, healthy appearing, comfortable, no acute distress, well developed and well nourished Nutritional Appearance: well nourished Orientation/consciousness: patient oriented x3 HENMT: Head: normal to inspection, normocephalic and atraumatic Ears: hearing grossly normal bilaterally and external ears normal Face/Nose/Sinus: Normal external nose present, Normal nares present, normal facial exam and No erythema Face and sinus: normal facial exam and no erythema Mouth: Yes moist mucous membranes and No lip abnormal Throat: uvula midline Eyes: General: appearance normal, both eyes and all related structures Eyelids: eyelids normal Sclera: sclerae normal Neck: Neck: normal visual inspection and full ROM Thyroid: thyroid normal Carotids: no bruits Lymphatic: lymphedema not noted Chest: Chest palpation & inspection: normal inspection of the chest and normal palpation of entire chest wall Resp: Effort & Inspection: normal respiratory effort and not labored Auscultation: clear to auscultation bilaterally, no crackles, no rales and no wheezes Cardio: Jugular venous distension: no JVD Rate: regular rate Rhythm: regular rhythm Heart sounds: S1 normal heart sound present, S2 normal heart sound present, no click, no gallops, no murmurs and no rubs Bruits: no carotid bruits GI: Inspection: normal to inspection and non-distended Auscultation: normal bowel sounds Rectal Exam: deferred : General: No CVA tenderness and Yes no CVA tenderness Back/Spine/Pelvis: Back: no CVA tenderness, No CVA tenderness and No erythema Cervical Spine: cervical ROM normal Skin: General skin exam: normal color, no erythema and no pallor Lesions: no lesions Rashes: no rashes Neuro: General: patient oriented x3 and moves all extremities Cranial nerves: Yes facial symmetry Speech: normal speech and No Abnormal speech present Motor exam (neuro): 5/5 motor strength present throughout Extrem: General: normal to inspection and full ROM Psych: Appearance: grossly normal, well kempt and disheveled Affect: normal affect Objective Data Vital Signs Vital Signs: Vital Signs - 24 hr 08/11/24 22:20 08/11/24 22:29 08/11/24 22:29 Temperature 36.6 C Pulse Rate 66 72 Respiratory Rate 15 Blood Pressure 141/95 H Pulse Oximetry 99 100 Oxygen Delivery Room Air Room Air Oxygen Flow Rate Fraction of Inspired Oxygen 08/11/24 22:29 08/11/24 22:55 08/12/24 00:30 Temperature 36.6 C Pulse Rate 63 60 79 Respiratory Rate 14 18 19 Blood Pressure 144/99 H 126/84 117/86 Pulse Oximetry 96 94 86 L Oxygen Delivery Oxygen Flow Rate Fraction of Inspired Oxygen 08/12/24 00:45 08/12/24 01:00 HYBRID TESTER 08/12/24 01:15 HYBRID TESTER Temperature Pulse Rate 80 81 85 Respiratory Rate 16 17 22 H Blood Pressure 119/79 119/81 124/87 Pulse Oximetry 92 93 95 Oxygen Delivery Oxygen Flow Rate Fraction of Inspired Oxygen 08/12/24 01:30 HYBRID TESTER 08/12/24 01:30 CDT 08/12/24 01:45 CDT Temperature Pulse Rate 81 76 75 Respiratory Rate 18 12 18 Blood Pressure 114/81 100/75 105/68 Pulse Oximetry 95 94 96 Oxygen Delivery Oxygen Flow Rate Fraction of Inspired Oxygen 08/12/24 02:00 08/12/24 02:00 08/12/24 00:30 Temperature Pulse Rate 73 65 Respiratory Rate 17 Blood Pressure 104/72 Pulse Oximetry 99 92 Oxygen Delivery High Flow Nasal Cannula Oxygen Flow Rate 12 Fraction of Inspired Oxygen 08/12/24 04:00 08/12/24 04:27 08/12/24 04:00 Temperature 36.9 C Pulse Rate 64 66 Respiratory Rate 18 Blood Pressure 107/72 Pulse Oximetry 96 94 Oxygen Delivery High Flow Nasal Cannula Oxygen Flow Rate 7 Fraction of Inspired Oxygen 08/12/24 06:00 08/12/24 06:00 08/12/24 06:44 Temperature Pulse Rate 67 67 Respiratory Rate 10 L Blood Pressure 121/75 115/80 Pulse Oximetry 96 Oxygen Delivery Oxygen Flow Rate Fraction of Inspired Oxygen 08/12/24 08:00 08/12/24 08:00 08/12/24 08:00 Temperature 36.5 C Pulse Rate 70 62 61 Respiratory Rate 17 13 Blood Pressure 123/86 Pulse Oximetry 96 95 Oxygen Delivery Room Air Oxygen Flow Rate Fraction of Inspired Oxygen 08/12/24 10:00 08/12/24 10:00 08/12/24 10:32 Temperature Pulse Rate 62 60 Respiratory Rate 13 Blood Pressure 104/77 Pulse Oximetry 96 94 Oxygen Delivery Room Air Oxygen Flow Rate Fraction of Inspired Oxygen 21 Intake/Output Intake/Output: Intake & Output 08/09/24 08/10/24 08/11/24 08/12/24 23:59 23:59 23:59 22:59 Intake Total 240 Output Total 2275 Balance -5 Meds/Results Medications: Active Medications Generic Name Dose Route Start Last Admin Trade Name Freq PRN Reason Stop Dose Admin Acetaminophen 650 mg 08/12/24 01:00 HYBRID TESTER 08/12/24 04:50 Acetaminophen 325 Mg Tablet PO 650 mg Q6H PRN Administration Mild Pain (1-3) or Fever Hydrocodone Bitart/Acetaminophen 1 tab 08/12/24 00:41 Hydrocodone/Acetaminophen (*Crx) 5-325 Mg Tablet PO Q4-6H PRN Pain Rated 1-3 Al Hydrox/Mg Hydrox/Simethicone 30 ml 08/12/24 00:41 Mag Hydrox/Al Hydrox/Simeth 30 Ml Udc PO Q4H PRN Indigestion Allopurinol 300 mg 08/12/24 08:00 08/12/24 09:32 Allopurinol 300 Mg Tablet PO 300 mg DAILY@0800 SHANE Administration Aspirin 81 mg 08/12/24 09:00 08/12/24 09:33 Aspirin 81 Mg Enteric Tablet PO 81 mg QAM SHANE Administration Dextrose 12.5 gm 08/12/24 00:41 Dextrose 50% 25 Gm/50 Ml Syringe IV PUSH PRN PRN Hypoglycemia Protocol Empagliflozin 25 mg 08/12/24 09:00 08/12/24 09:33 Empagliflozin 25 Mg Tablet PO 25 mg DAILY SHANE Administration Enoxaparin Sodium 40 mg 08/12/24 09:00 08/12/24 09:32 Enoxaparin 40 Mg/0.4 Ml Syringe SUB-Q 40 mg DAILY SHANE Administration Glucagon 1 mg 08/12/24 00:41 Glucagon For Inj 1 Mg Vial IM PRN PRN Hypoglycemia Protocol Glucose 15 gm 08/12/24 00:41 Glucose Oral Gel 15 Gm Of Glucse In 37.5 Gm Tube PO PRN PRN Hypoglycemia Protocol Hydralazine HCl 10 mg 08/12/24 01:01 HYBRID TESTER Hydralazine Hcl 20 Mg/Ml Vial IV PUSH Q6H PRN Blood Pressure - High Sodium Chloride 1,000 mls @ 75 mls/hr 08/12/24 00:41 08/12/24 04:11 Normal Saline Iv IV CONT 08/12/24 14:00 75 mls/hr .[id number] ONE Administration Dextrose 1,000 mls @ 100 mls/hr 08/12/24 00:41 Dextrose 5% 1,000 Ml IVPB PRN PRN Hypoglycemia Protocol Insulin Aspart 2 - 5 units 08/12/24 08:00 08/12/24 07:35 Insulin Aspart (*Bkc) 100 Units/Ml SUB-Q 2 units TIDWM SHANE Administration Protocol Nitroglycerin 0.4 mg 08/11/24 22:30 08/12/24 09:30 Nitroglycerin Sl 0.4 Mg Tablet SUBLINGUAL 0.4 mg Q5MIN PRN Administration Chest Pain Olmesartan 40 mg 08/12/24 09:00 08/12/24 09:34 Olmesartan Medoxomil 20 Mg Tablet PO 40 mg QAM SHANE Administration Ondansetron HCl 4 mg 08/12/24 00:41 Ondansetron Hcl Odt 4 Mg Tablet PO 08/13/24 00:40 Q4-6H PRN Nausea Pantoprazole Sodium 40 mg 08/12/24 09:00 08/12/24 09:32 Pantoprazole 40 Mg Tablet PO 40 mg QAM SHANE Administration Perflutren Lipid Microsphere 0 ml 08/12/24 08:17 Perflutren Lipid Microspheres 1.5 Ml Vial Diluted To 10 Ml Total Volume IV PUSH 08/15/24 08:18 ONCE PRN adequate visualization Protocol Rosuvastatin Calcium 20 mg 08/12/24 09:00 08/12/24 09:33 Rosuvastatin 20 Mg Tablet PO 20 mg DAILY SHANE Administration Temazepam 15 mg 08/12/24 00:41 Temazepam (*Crx) 15 Mg Capsule PO HS PRN Insomnia Ticagrelor 90 mg 08/12/24 09:00 08/12/24 09:33 Ticagrelor 90 Mg Tablet PO 90 mg Q12HR SHANE Administration Radiology Results: ITS Impressions Chest X-Ray 08/12/24 08:16 IMPRESSION: 1. Pulmonary vascular congestion without elba pulmonary edema. Labs Labs: Laboratory Results - last 24 hr 08/11/24 08/11/24 08/11/24 22:29 22:34 22:35 WBC 11.2 H RBC 5.02 Hgb 15.6 Hct 45.5 MCV 90.6 MCH 31.1 MCHC 34.3 RDW 14.2 Plt Count 240 MPV 10.2 Immature Gran % (Auto) 0.2 Neut % (Auto) 48.9 Lymph % (Auto) 34.6 [place] % (Auto) 12.1 H Eos % (Auto) 3.1 Baso % (Auto) 1.1 Lymph # (Auto) 3.89 H [place] # (Auto) 1.4 H Eos # (Auto) 0.4 H Baso # (Auto) 0.1 Abs Immat Gran (auto) 0.02 Absolute Neuts (auto) 5.5 Absolute Nucleated RBC 0.000 Nucleated RBC % 0.0 PT 13.5 INR 1.0 APTT 28.2 Sodium 142 Potassium 3.9 Chloride 108 H Carbon Dioxide 22 Anion Gap 12 BUN 24 H Creatinine 1.00 Estim Creat Clear Calc 72 Estimated GFR > 60 Glucose 201 H POC Capillary Glucose 193 H Hemoglobin A1c 7.2 H Calcium 9.3 Total Bilirubin 0.4 AST 43 ALT 30 Alkaline Phosphatase 69 Troponin I < 0.012 NT-Pro-B Natriuret Pep 26 Total Protein 7.0 Albumin 4.2 Triglycerides 299 H Cholesterol 127 LDL Cholesterol Direct 64 HDL Direct 27 Lipase 80 Nasal MRSA (PCR) 08/12/24 08/12/24 08/12/24 01:35 HYBRID TESTER 01:36 HYBRID TESTER 05:11 WBC RBC Hgb Hct MCV MCH MCHC RDW Plt Count MPV Immature Gran % (Auto) Neut % (Auto) Lymph % (Auto) [place] % (Auto) Eos % (Auto) Baso % (Auto) Lymph # (Auto) [place] # (Auto) Eos # (Auto) Baso # (Auto) Abs Immat Gran (auto) Absolute Neuts (auto) Absolute Nucleated RBC Nucleated RBC % PT INR APTT Sodium 140 Potassium 4.3 Chloride 109 H Carbon Dioxide 25 Anion Gap 6 BUN 23 H Creatinine 0.90 Estim Creat Clear Calc 79 Estimated GFR > 60 Glucose 191 H POC Capillary Glucose Hemoglobin A1c Calcium 8.9 Total Bilirubin AST ALT Alkaline Phosphatase Troponin I 62.600 H* D > 80.000 H* D NT-Pro-B Natriuret Pep Total Protein Albumin Triglycerides Cholesterol LDL Cholesterol Direct HDL Direct Lipase Nasal MRSA (PCR) Not detected 08/12/24 07:27 WBC RBC Hgb Hct MCV MCH MCHC RDW Plt Count MPV Immature Gran % (Auto) Neut % (Auto) Lymph % (Auto) [place] % (Auto) Eos % (Auto) Baso % (Auto) Lymph # (Auto) [place] # (Auto) Eos # (Auto) Baso # (Auto) Abs Immat Gran (auto) Absolute Neuts (auto) Absolute Nucleated RBC Nucleated RBC % PT INR APTT Sodium Potassium Chloride Carbon Dioxide Anion Gap BUN Creatinine Estim Creat Clear Calc Estimated GFR Glucose POC Capillary Glucose 207 H Hemoglobin A1c Calcium Total Bilirubin AST ALT Alkaline Phosphatase Troponin I NT-Pro-B Natriuret Pep Total Protein Albumin Triglycerides Cholesterol LDL Cholesterol Direct HDL Direct Lipase Nasal MRSA (PCR)
[2024-08-12 12:18] LABS: Glucose Point of Care 208 mg/dl (65-105)
[2024-08-12 16:39] LABS: Glucose Point of Care 221 mg/dl (65-105)
[2024-08-12] MEDS: TEMAZEPAM (*CRX) 15 MG CAPSULE PO (20:17)
[2024-08-12 21:32] LABS: Glucose Point of Care 156 mg/dl (65-105)
[2024-08-13] VITALS (9 sets, daily range): BP systolic 95–112; BP diastolic 56–76; PULSE 68–90; RESP 16–18; TEMP 36.6–36.9; O2SAT 95–96
--- NOTE | 2024-08-13 | ECHO_ITS ---
Patient Info Name: Brock Marx Age: 58 years : 1965 Gender: Male Ht: 70 in Wt: 178 lbs BSA: 2.01 m2 HR: 79 bpm BP: 112 / 76 mmHg Technical Quality: Fair Exam Date: 08/13/2024 1:51 PM Exam Location: Echo Lab Patient Status: Inpatient Admit Date: 08/11/2024 Staff Ordering Physician: Michael Jesus MD Junior Copywriter: Wanda Hanks RDCS Attending Provider: Minda Purcell MD Exam Type: CA echo dop color flow w con Study Info Indications I21.3 - ST elevation (STEMI) myocardial infarction of unspecified site Complete two-dimensional, color flow and Doppler transthoracic echocardiogram is performed with contrast to opacify the left ventricle and to improve the deliniation of the left ventricle endocardial borders. Contrast/Agitated Saline Contrast/Ag. Saline: Definity Amount: 2.00 ml Existing IV Access: Yes IV Access Condition: patent with no signs of infiltration Summary 1. The left ventricle is normal in size. Left ventricular systolic function is moderately reduced. The left ventricular ejection fraction is is visually estimated to be 35-40%. There is akinesis of apex, entire anteroseptal, distal anterior, distal inferior, and distal inferoseptal vieira. 2. The aortic valve is probably trileaflet and opens well. There is no aortic regurgitation. 3. The mitral valve is grossly normal. There is trace mitral regurgitation. 4. The tricuspid valve is normal. There is trace tricuspid regurgitation. 5. The pulmonic valve is not well visualized. There is no color Doppler evidence of pulmonic valve regurgitation. Left Ventricle The left ventricle is normal in size. Left ventricular systolic function is moderately reduced. The left ventricular ejection fraction is is visually estimated to be 35-40%. There is akinesis of apex, entire anteroseptal, distal anterior, distal inferior, and distal inferoseptal vieira. Right Ventricle The right ventricle is normal in size and systolic function. Left Atria The left atrium is normal in size. Right Atria The right atrium is normal in size. Aortic Valve The aortic valve is probably trileaflet and opens well. There is no aortic regurgitation. Pulmonic Valve The pulmonic valve is not well visualized. There is no color Doppler evidence of pulmonic valve regurgitation. Mitral Valve The mitral valve is grossly normal. There is trace mitral regurgitation. Tricuspid Valve The tricuspid valve is normal. There is trace tricuspid regurgitation. Pericardium/Pleural Prominent epicardial fat pad. Inferior Vena Cava Normal inferior vena cava with >50% collapse upon inspiration consistent with normal right atrial pressure, 3 mmHg. Left Ventricular Outflow Tract Name Value Normal LVOT 2D LVOT Diameter 1.96 cm LVOT Doppler LVOT Peak Gradient 4 mmHg LVOT Mean Gradient 2 mmHg LVOT VTI 18.79 cm LVOT VTI/AV VTI Ratio 1.04 LVOT Stroke Volume 56.80 ml LVOT CO 4.52 l/min LVOT CI 2.25 L/min/m2 Pulmonic Valve Name Value Normal PV Doppler PV Peak Gradient 2 mmHg Mitral Valve Name Value Normal MV Doppler MV Decel [place] 503.83 cm/s2 MV PHT 0 s MV Area (PHT) 4.37 cm2 4.00-5.00 MV Diastolic Function MV E Peak Velocity 87.38 cm/s MV A Peak Velocity 106.18 cm/s MV E/A 0.82 MV Decel Time 0 s Tricuspid Valve Name Value Normal TV Regurgitation Doppler TR Peak Velocity 248.19 cm/s TR Peak Gradient 25 mmHg Estimated PAP/RSVP RA Pressure 3 mmHg <=5 PA Systolic Pressure 28 mmHg <36 RV Systolic Pressure 28 mmHg <36 Aorta Name Value Normal Ascending Aorta Ao Root Diameter (MM) 2.85 cm Ao Root Diam Index (MM) 1.42 cm/m2 Aortic Valve Name Value Normal AV Doppler AV Peak Velocity 115.34 cm/s AV Peak Gradient 5 mmHg AV Mean Gradient 3 mmHg AV VTI 18.11 cm AV Area (Cont Eq VTI) 3.14 cm2 >=3.00 AV Area (Cont Eq Jason) 2.70 cm2 AV Regurgitation 2D LVOT Area 3.02 cm2 Ventricles Name Value Normal LV Dimensions 2D/MM IVS Diastolic Thickness (2D) 0.77 cm 0.60-1.00 IVS Diastole Thickness (MM) 0.78 cm 0.60-1.00 LVID Diastole (2D) 4.78 cm 4.20-5.80 LVID Diastole (MM) 4.69 cm 4.20-5.80 LVIW Diastolic Thickness (2D) 0.81 cm 0.60-1.00 LVIW Diastolic Thickness (MM) 1.11 cm 0.60-1.00 LVID Systole (2D) 3.10 cm 2.50-4.00 LVID Systole (MM) 3.23 cm 2.50-4.00 LVOT Diameter 1.96 cm LV Mass (2D Cubed) 123.83 g 88.00-224.00 LV Mass Index (2D Cubed) 0.01 g/cm2 0.00-0.01 Relative Wall Thickness (2D) 0.34 LV Mass (MM Cubed) 152.10 g 88.00-224.00 LV Mass Index (MM Cubed) 0.01 g/cm2 0.00-0.01 Relative Wall Thickness (MM) 0.47 LV Fractional Shortening/Ejection Fraction 2D/MM LV Fractional Shortening (2D) 35 % 25-43 LV Fractional Shortening (MM) 31 % 25-43 LV EF (MM Teicholz) 59 % 52-72 LV EF (2D Teicholz) 64 % 52-72 LV Diastolic Volume (4C MOD) 101.24 ml LV EF (4C MOD) 44 % LV Diastolic Volume (2C MOD) 103.86 ml LV EF (2C MOD) 34 % LV Diastolic Volume (BP MOD) 103.56 ml 62.00-150.00 LV Diastolic Volume Index (BP MOD) 0.05 l/m2 0.03-0.07 LV Systolic Volume (BP MOD) 63.48 ml 21.00-61.00 LV Systolic Volume Index (BP MOD) 0.03 l/m2 0.01-0.03 LV EF (BP MOD) 39 % 52-72 LV Diastolic Length (4C) 8.93 cm LV Systolic Length (4C) 8.03 cm LV Stroke Volume (4C MOD) 44.31 ml Atria Name Value Normal LA Dimensions LA Dimension (MM) 3.00 cm 3.00-4.10 LA Volume (4C A-L) 40.54 ml LA Volume (BP A-L) 46.93 ml RA Dimensions Area (4C) 12.48 cm2 <=18.00 Report Signatures
[2024-08-13 08:39] LABS: Glucose Point of Care 294 mg/dl (65-105)
[2024-08-13] MEDS: INSULIN ASPART (*BKC) 100 UNITS/ML SUB-Q (09:40)
[2024-08-13] MEDS: TICAGRELOR 90 MG TABLET PO (09:41)
[2024-08-13] MEDS: ROSUVASTATIN 20 MG TABLET PO (09:41)
[2024-08-13] MEDS: EMPAGLIFLOZIN 25 MG TABLET PO (09:41)
[2024-08-13] MEDS: ASPIRIN 81 MG ENTERIC TABLET PO (09:41)
[2024-08-13] MEDS: METOPROLOL SUCCINATE EXT REL 25 MG TABCR PO (09:41)
[2024-08-13] MEDS: PANTOPRAZOLE 40 MG TABLET PO (09:41)
[2024-08-13] MEDS: OLMESARTAN MEDOXOMIL 20 MG TABLET 40 MG PO (09:41)
[2024-08-13] MEDS: allopurinoL 300 MG TABLET PO (09:42)
[2024-08-13] MEDS: ENOXAPARIN 40 MG/0.4 ML SYRINGE SUB-Q (09:42)
[2024-08-13 12:14] LABS: Glucose Point of Care 163 mg/dl (65-105)
[2024-08-13] MEDS: PERFLUTREN LIPID MICROSPHERES 1.5 ML VIAL DILUTED TO 10 ML TOTAL VOLUME IV PUSH (14:43)
--- NOTE | 2024-08-13 14:43 | IVDEFINITY ---
Prior to administration of IV Definity the patient was educated on the risks and benefits of the imaging enhancing agent including potential adverse side effects. The patient verbalized understanding. Allergies were verified. No exclusion criteria were identified and at least one of the following inclusion criteria were met: 1) physician request, 2) patient technically difficult to image (per the [place] [employer] guidelines of two or more segments not discernable within the apical view), or 3) questionable left ventricular function. ?
--- NOTE | 2024-08-13 15:10 | PM.DS ---
DS: Admitting Diagnosis Discharge Date 08/13/2024 Admitting Diagnosis STEMI DS: Discharge Diagnosis Discharge Diagnosis (1) ST elevation (STEMI) myocardial infarction: Onset Date: 08/11/24 Code(s): I21.3 - ST elevation (STEMI) myocardial infarction of unspecified site Status: Acute Assessment and Plan: continue aspirin, Brilinta. continue high-intensity statin. (2) Hypertension: Code(s): I10 - Essential (primary) hypertension Status: Acute Assessment and Plan: Blood pressure controlled. Continue olmesartan. (3) Hyperlipidemia: Code(s): E78.5 - Hyperlipidemia, unspecified Status: Acute Assessment and Plan: Continue high dose statin (4) Abdominal aortic aneurysm: Code(s): I71.40 - Abdominal aortic aneurysm, without rupture, unspecified Status: Acute Assessment and Plan: make sure the blood pressure is controlled. will start today Toprol-XL 25 mg daily. I believe he takes beta-blockers at home. (5) Diabetes mellitus: Code(s): E11.9 - Type 2 diabetes mellitus without complications Status: Acute Assessment and Plan: Hemoglobin A1c 7.2. Optimize blood sugar control. DS: Summary Hospital Course Hospital Course: Mr Marx is a 58-year-old patient who is smoker, diabetic history of hypertension who presents to the hospital with intermittent chest pain for the last couple days. However on 08/11 the pain became severe and intense. It was central in location with radiation to the left arm. EKG initially was showed ST elevations by EMS however on arrival to the ER the EKG looked much better but he was still having chest pain. We decided to wait for 5 minutes and give sublingual nitroglycerin and heparin and evaluate and repeat EKG shows more ST elevations and therefore we decided to do heart catheterization. Findings of his coronary angiogram are as follows: 1- left coronary artery is a large artery that divides into large LAD, large circumflex artery. 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 After putting a stent and adventism of LITO flow 3, we noticed that post stent that there is a lesion of about 40% and then downstream also another lesion about 30%. 3- left circumflex artery is a large artery. Proximally 30%. It gives rise to small OM 1 in the mid segment that has minimal irregularities. 4- right coronary artery is Large artery and dominant. Proximally there is aneurysmal segment followed by 50% lesion and then diffuse 30% stenosis in the mid segment. 5- LVEDP was 25 mm Hg and no gradient across aortic valve. 6- LV angiogram shows hypokinesis of the anterior and apical inferior wall. Estimated ejection fraction about 40% He underwent PCI with PRATIK x 1 to the LAD. He had an uneventful hospitalization and recovered as expected without any complications. He i stable and appropriate for discharge home today. Time Spent with Patient Time attestation: Total time spent providing and/or coordinating discharge services: Exam Const: General: cooperative, healthy appearing, comfortable, no acute distress, well developed and well nourished Nutritional Appearance: well nourished Orientation/consciousness: patient oriented x3 HENMT: Head: normal to inspection, normocephalic and atraumatic Ears: hearing grossly normal bilaterally and external ears normal Face/Nose/Sinus: Normal external nose present, Normal nares present, normal facial exam and No erythema Face and sinus: normal facial exam and no erythema Mouth: Yes moist mucous membranes and No lip abnormal Throat: uvula midline Eyes: General: appearance normal, both eyes and all related structures Eyelids: eyelids normal Sclera: sclerae normal Neck: Neck: normal visual inspection and full ROM Thyroid: thyroid normal Carotids: no bruits Lymphatic: lymphedema not noted Chest: Chest palpation & inspection: normal inspection of the chest and normal palpation of entire chest wall Resp: Effort & Inspection: normal respiratory effort and not labored Auscultation: clear to auscultation bilaterally, no crackles, no rales and no wheezes Cardio: Jugular venous distension: no JVD Rate: regular rate Rhythm: regular rhythm Heart sounds: S1 normal heart sound present, S2 normal heart sound present, no click, no gallops, no murmurs and no rubs Bruits: no carotid bruits GI: Inspection: normal to inspection and non-distended Auscultation: normal bowel sounds Rectal Exam: deferred : General: No CVA tenderness and Yes no CVA tenderness Back/Spine/Pelvis: Back: no CVA tenderness, No CVA tenderness and No erythema Cervical Spine: cervical ROM normal Skin: General skin exam: normal color, no erythema and no pallor Lesions: no lesions Rashes: no rashes Neuro: General: patient oriented x3 and moves all extremities Cranial nerves: Yes facial symmetry Speech: normal speech and No Abnormal speech present Motor exam (neuro): 5/5 motor strength present throughout Extrem: General: normal to inspection and full ROM Psych: Appearance: grossly normal, well kempt and disheveled Affect: normal affect DS: Data Data Completed and Pending Labs on day of discharge: Labs from last 24 hours 08/13/24 08/13/24 08/12/24 12:09 08:16 21:29 POC Capillary Glucose 163 H 294 H 156 H 08/12/24 16:33 POC Capillary Glucose 221 H Discharge Plan Discharge Consulting providers: Adam Lopes; Tala Gomez; Jorge Chi; Jason Laguna; Hernan Sosa; Fran Quezada; Michael Jesus Discharging Clinician: Concetta Babcock Patient Disposition: Home, Self-Care Activity: other - see discharge instructions Diet: heart healthy Wound Care Instructions: other - see discharge instructions Discharge Instructions: [facility] [address] [facility] [address] [place] [address] DISCHARGE INSTRUCTIONS - POST PCI Activity 1. No driving until 08/15/24. 2. No lifting, pushing or pulling more than 10 pounds for 1 week. 3. No strenuous exercise or activity (including sexual activity) until you are released to do so. 4. May shower but no tub baths or swimming pool for 1 week. Avoid hot tubs. Medications DO NOT STOP YOUR MEDICATIONS ONLY YOUR CEMENTING MACHINE OPERATOR CAN STOP THE FOLLOWING MEDICATIONS - PLEASE CALL THE OFFICE WITH QUESTIONS. *Aspirin *Ticagrelor (Brilinta) *Rosuvastatin *Metoprolol Important Reminders 1. Keep your stent card in your wallet at all times 2. Follow a heart healthy diet paying extra attention to cholesterol and fats. 3. Stay hydrated. 4. If you have chest pain unrelieved by rest or nitroglycerin (if prescribed) call 911 immediately. 5. If you miss one dose of Brilinta (if prescribed) take a tablet at the next time due. If you miss 2 doses take a tablet when you remember and resume at the next time due. *For any other questions please call the office at [phone]. Office hours are 8AM 4:30PM Tuesday through Tuesday. Patient Instructions: Ticagrelor (By mouth), Heart Attack (GEN), How to Stop Smoking (DC), Heart Healthy Diet (GEN), Safe Use of Anticoagulants (GEN), Left Heart Catheterization (GEN) Stand Alone Forms: General Discharge Information, Work/School Release IP Follow-up/Referrals: Minda Purcell MD [Physician] - (OUR OFFICE WILL CALL YOU WITH APPOINTMENT INFORMATION.) Discharge Medications: New Brilinta 90 mg Tablet 90 mg PO Q12HR Qty: 60 11RF metoprolol succinate [Toprol XL] 25 mg Tablet Extended Release 24 Hr 25 mg PO QAM Qty: 30 11RF nitroglycerin [Nitrostat] 0.4 mg Tablet, Sublingual 0.4 mg sublingual Q5MIN PRN (Reason: Chest Pain) Qty: 10 0RF Continued allopurinol 300 mg tablet 300 mg PO DAILY aspirin 81 mg Tablet 81 mg PO DAILY metformin 500 mg tablet extended release 24 hr 1,000 mg PO DAILY olmesartan 40 mg tablet 40 mg PO DAILY rosuvastatin 20 mg tablet 20 mg PO DAILY omeprazole 20 mg Tablet,Delayed Release (Dr/Ec) 20 mg PO DAILY Jardiance 25 mg tablet 25 mg PO DAILY Discontinued metoprolol succinate 100 mg tablet extended release 24 hr 100 mg PO DAILY Date of admission: 08/11/24 22:50 Primary Care Provider: merrick larry Admitting Provider: Minda Purcell Attending physician on admission: Concetta Babcock Condition: Stable Quality VTE Prophylaxis VTE prophylaxis: mechanical ordered
--- NOTE | 2024-08-13 15:16 | PCCPR ---
visited bedside- provided information on Cardiac Rehab upon discharge
--- NOTE | 2024-08-13 16:38 | PM.IMPN ---
Progress Note: A&P Assessment and Plan (1) ST elevation (STEMI) myocardial infarction: Onset Date: 08/11/24 Code(s): I21.3 - ST elevation (STEMI) myocardial infarction of unspecified site Status: Acute Assessment and Plan: Acute anterior STEMI status post PCI and PRATIK to LAD Echo showing LVEF 35-40 %. Continue aspirin Brilinta ARB beta-sofía statin No cardiopulmonary symptoms noted. (2) Congestive heart failure: Code(s): I50.9 - Heart failure, unspecified Status: Acute Assessment and Plan: Acute CHF, Unspecified Type: Elevated LVEDP, Hypoxia, bilateral crackles suggest congestive heart failure ECHO 08/13/24 showing LVEF 35-40 %. Patient received Lasix in ICU Appears compensated currently with no SOB or O2 requirement, RA with sats > 92 %. Further mgt per Firmware Developer. Currently no requirement for further diuresis. (3) Type 2 diabetes mellitus: Code(s): E11.9 - Type 2 diabetes mellitus without complications Status: Acute Assessment and Plan: - Metformin held inpatient. - On Jardiance and sliding scale insulin - Adjust insulin as needed for optimal control. (4) Hypertension: Code(s): I10 - Essential (primary) hypertension Status: Acute Assessment and Plan: - Stable on Metoprolol and Olmesartan. (5) Tobacco dependence: Code(s): F17.200 - Nicotine dependence, unspecified, uncomplicated Status: Acute Assessment and Plan: Patient was counseled and encouraged with cessation. (6) Hyperlipidemia: Code(s): E78.5 - Hyperlipidemia, unspecified Status: Acute Assessment and Plan: Rosuvastatin continued Plan Possible discharge today per sap business intelligence consultant Time Spent With Patient Time with patient: 15 - 25 minutes Subjective Date/time seen: 08/13/24 16:38 Patient calm on bedrest and in no acute distress. States he has no chest pain or SOB, hoping to go home today. Interval history: presented to ER with chief complaint of chest pain that started 20 minutes prior to presentation. Patient states he had an episode of pain on Tuesday evening which subsided by itself after 20 minutes. Pain was burning the middle of chest and radiated to his neck. Associated with sweating shortness of breath. Prior to that he was feeling fine and denied any fever, cough, dyspnea on exertion, orthopnea, PND. He received aspirin and nitroglycerin in the field per EMS with perhaps some mild improvement. Pre-hospital EKG showed ST elevations that resolved by the time he arrived to the emergency department. Due to ongoing chest pain repeat EKG was performed and showed more ST-elevation and he was taken to the boat laborer. He was found to have a totally occluded proximal LAD for which he is status post angioplasty with drug-eluting stent. He was hypoxic post-procedure and received Lasix in the ICU. Review of Systems Review of Systems: 12 systems were reviewed and are negative except for as per HPI. Exam Narrative: General: Pt is alert awake and in NAD Lungs/Chest: Trachea central, Lungs Clear Bilaterally. Cardiac: RRR. Normal S1 S2. No murmurs Circulation: Bilateral dorsalis pedis Pedal pulses 2+ symmetrical. Abdomen: Normal bowel sounds.. Soft. NT. +ve X 4 quadrants. Extremities: No clubbing, cyanosis or edema. Neurologic: CN II-XII Grossly intact. No focal neuro deficits. Skin: No Rash Objective Data Vital Signs Vital Signs: Vital Signs - 24 hr 08/12/24 20:00 08/12/24 20:00 08/12/24 20:00 Temperature 98.3 F Pulse Rate 69 69 69 Respiratory Rate 16 16 Blood Pressure 116/69 Pulse Oximetry 96 96 Oxygen Delivery Room Air 08/12/24 22:00 08/13/24 00:00 08/13/24 00:00 Temperature 98.4 F Pulse Rate 71 71 68 Respiratory Rate 16 16 Blood Pressure 100/66 Pulse Oximetry 96 95 Oxygen Delivery Room Air 08/13/24 00:00 08/13/24 02:00 08/13/24 04:00 Temperature Pulse Rate 68 71 71 Respiratory Rate 16 Blood Pressure Pulse Oximetry 95 Oxygen Delivery Room Air 08/13/24 04:00 08/13/24 04:00 08/13/24 06:00 Temperature 98.3 F Pulse Rate 72 84 79 Respiratory Rate 16 Blood Pressure 112/76 Pulse Oximetry 95 Oxygen Delivery 08/13/24 08:00 08/13/24 09:41 08/13/24 08:00 Temperature 98 F Pulse Rate 84 83 Respiratory Rate 18 Blood Pressure 110/64 Pulse Oximetry 96 Oxygen Delivery Room Air 08/13/24 12:00 08/13/24 12:00 08/13/24 08:00 Temperature 98.3 F Pulse Rate 74 83 Respiratory Rate 16 Blood Pressure 95/56 L Pulse Oximetry 96 Oxygen Delivery Room Air 08/13/24 10:00 08/13/24 12:00 08/13/24 14:00 Temperature Pulse Rate 90 76 73 Respiratory Rate Blood Pressure Pulse Oximetry Oxygen Delivery Intake/Output Intake/Output: Intake & Output 08/11/24 08/12/24 08/12/24 08/13/24 00:59 00:59 23:59 23:59 Intake Total 720 Output Total Balance 720 Meds/Results Radiology Results: ITS Impressions Chest X-Ray 08/12/24 08:16 IMPRESSION: 1. Pulmonary vascular congestion without elba pulmonary edema. Labs Labs: Laboratory Results - last 24 hr 08/12/24 08/12/24 08/13/24 16:33 21:29 08:16 POC Capillary Glucose 221 H 156 H 294 H 08/13/24 12:09 POC Capillary Glucose 163 H Quality VTE Prophylaxis VTE prophylaxis: mechanical ordered Hospitalist MIPS Advance Care Plan I have confirmed that the patient's Advanced Care Plan is present, code status is documented, or surrogate decision maker is listed in patient medical record.: Yes Medication Reconciliation I have utilized all available resources to obtain, update and review the patients current medications (includes all prescriptions, OTC, herbals, cannabis, and nutritional supplements).: Yes
== END 2024-08-13 16:10 | disposition home or self-care (01) | DRG 321 ==
LOC: ANHED 22:55 → ANHICU 23:01 → ANHIMU 08-12 16:25
PROVIDERS: Admitting Provider Internal Medicine Cardiovascular Disease; Emergency Provider Emergency Medicine; Visit Provider Nurse Practitioner
PROC: 4A023N7 Measurement of Cardiac Sampling and Pressure, Left Heart, Percutaneous Approach (ICD-10-PCS; CPT 93452; principal; 2024-08-11 22:35)
PROC: 027034Z Dilation of Coronary Artery, One Artery with Drug-eluting Intraluminal Device, Percutaneous Approach (ICD-10-PCS; 2024-08-11 22:35)
PROC: 027034Z Dilation of Coronary Artery, One Artery with Drug-eluting Intraluminal Device, Percutaneous Approach (ICD-10-PCS; 2024-08-11 22:35)
DX: I21.09 ST elevation (STEMI) myocardial infarction involving other coronary artery of anterior wall (principal); I50.21 Acute systolic (congestive) heart failure; J96.01 Acute respiratory failure with hypoxia; I25.10 Atherosclerotic heart disease of native coronary artery without angina pectoris; I71.40 Abdominal aortic aneurysm, without rupture, unspecified; I50.9 Heart failure, unspecified; E11.9 Type 2 diabetes mellitus without complications; E78.5 Hyperlipidemia, unspecified; F17.210 Nicotine dependence, cigarettes, uncomplicated; Z79.624 Long term (current) use of inhibitors of nucleotide synthesis; I11.0 Hypertensive heart disease with heart failure
CPT/HCPCS: 36415; 71045; 80048; 80053; 80061; 82948; 83036; 83690; 83880; 84484; 85025; 85610; 85730; 87641; 93005; 93458; 96374; 96375; 99291; A9270; C1760; C1769; C1874; C1887; C1894; C7532; C8929; C9606; G0269; J0583; J1171; J1644; J1650; J1815; J1940; J2003; J2250; J2270; J2305; J3010; J7030; J7040; Q9957

== ENCOUNTER 2024-10-07 12:32 | Emergency (ER) | payer BC, SELFPAY ==
[2024-10-07 12:44] VITALS: BP 123/79; PULSE 85; RESP 16; TEMP 37.2; O2SAT 97
[2024-10-07 12:58] LABS: EDINFLUASCREEN Negative (Negative); EDINFLUBSCREEN Negative (Negative)
--- NOTE | 2024-10-07 13:02 | ED.URI ---
HPI - URI/Sore Throat General Chief Complaint: Upper Respiratory Infection Stated Complaint: Sinus Infection Symptoms Time Seen by Provider: 10/07/24 12:55 Source: patient and RN notes reviewed Mode of arrival: ambulatory Limitations: no limitations History of Present Illness HPI Narrative: Patient presents today complaining of a 4 day history of sore throat, nasal congestion, rhinorrhea, productive cough. Denies shortness of breath or fever. He has tried [place] [facility] at home without relief. Home COVID test was negative a few days ago. No history of asthma or COPD. Related Data Home Medications ?Medication ?Instructions ?Recorded ?Confirmed ?Last Taken ?Type allopurinol 300 mg tablet 300 mg PO DAILY 08/12/24 10/07/24 Unknown History aspirin 81 mg tablet 81 mg PO DAILY 08/12/24 10/07/24 Unknown History empagliflozin 25 mg tablet 25 mg PO DAILY 08/12/24 10/07/24 Unknown History (Jardiance) metformin 500 mg tablet,extended 1,000 mg PO DAILY 08/12/24 10/07/24 Unknown History release 24 hr olmesartan 40 mg tablet 40 mg PO DAILY 08/12/24 10/07/24 Unknown History omeprazole 20 mg tablet,delayed 20 mg PO DAILY 08/12/24 10/07/24 Unknown History release rosuvastatin 20 mg tablet 20 mg PO DAILY 08/12/24 10/07/24 Unknown History Allergies Allergy/AdvReac Type Severity Reaction Status Date / Time No Known Allergies Allergy Mild Verified 10/07/24 12:38 Review of Systems Review of Systems: CONSTITUTIONAL: Denies body aches, fever, chills, or sweats. EYES: Denies visual changes, redness, or discharge. ENT: Denies rhinorrhea, or otalgia.+ congestion, sore throat CARDIOVASCULAR: Denies chest pain, palpitations, or edema. RESPIRATORY: Denies dyspnea.+ cough GASTROINTESTINAL: Denies abdominal pain, nausea, vomiting, or diarrhea. GENITOURINARY: Denies dysuria or hematuria. SKIN: Denies rash, itching, or wounds. MUSCULOSKELETAL: Denies back pain, joint pain, or myalgia. NEUROLOGIC: Denies headache, numbness, tingling, or weakness. PSYCH: Denies depression or anxiety. [facility] Past Medical History Medical History Abdominal aortic aneurysm Gastroesophageal reflux disease Kidney stones Coronary artery disease Gout Type 2 diabetes mellitus Tobacco dependence Hypertension Hyperlipidemia ST elevation (STEMI) myocardial infarction (08/11/24) Status post PTCA/stent to the proximal LAD Surgical History Surgical History History of cardiac catheterization (08/11/24) PTCA/stent to the proximal LAD Family History Family History Sibling Lung cancer Father Diabetes mellitus Hypertension Mother Hypertension Social History Social History Social History: Surrogate medical decision maker: Tracy Marx. Code status: Full code. Smoking packs per day: 1 Smoking cigarettes per day: 20.0 Years smoked: 40 Smoking pack-years: 40.00 Smoking status: Current every day smoker Alcohol intake: never Substance use: never Substance use type: does not use Do You Feel Safe in your Home?: Yes Lack of Transportation: No Lack of Food: Never True Current Housing: I Have Housing Concerned About Future Housing: No Difficulty Paying Gas/Electric Bills: No Difficulty Paying for Meds: No Currently Unemployed: No Education: Trade/Vocational Certificate Difficulty w/ Childcare or Family Care: No Spiritual care concerns: No Comments At time of signature, I have reviewed and agree with nursing past medical, surgical, social and family history unless otherwise noted. Please see nursing chart for further information. There is no relevant family history pertinent to the presenting complaint Exam Narrative: GENERAL: Mildly ill-appearing, well-nourished, and in no acute distress. HEAD: Normocephalic, atraumatic. EYES: EOMI. No redness or drainage. Conjunctivae normal. ENT: Mucous membranes pink and moist. Nares congested. No rhinorrhea. TMs normal bilaterally. Throat normal. Uvula midline. NECK: Normal AROM. Supple. No lymphadenopathy. CHEST: No respiratory distress. Clear to auscultation. HEART: Regular rate and rhythm. No murmur appreciated. EXTREMITIES: Normal range of motion. No edema. SKIN: Warm, dry, no rash. Capillary refill normal. Normal skin turgor. NEURO: No focal deficits. Alert and oriented x3. Gait steady. PSYCH: Normal affect. No signs of depression or anxiety. Course Course Level of Care: Express Care Visit Vital Signs Vital signs: Vital Signs Temperature 98.9 F 10/07/24 12:44 Pulse Rate 85 10/07/24 12:44 Respiratory Rate 16 10/07/24 12:44 Blood Pressure 123/79 10/07/24 12:44 Pulse Oximetry 97 10/07/24 12:44 Temperature 98.9 F 10/07/24 12:44 Pulse Rate 85 10/07/24 12:44 Respiratory Rate 16 10/07/24 12:44 Blood Pressure 123/79 10/07/24 12:44 Pulse Oximetry 97 10/07/24 12:44 Reviewed MDM - URI/Sore Throat MDM Narrative Medical decision making narrative: Influenza negative. Symptoms likely viral in etiology. Discussed [id number] medication use and duration of illness. Prescription for Tessalon Perles pharmacy. Anticipatory guidance given. ED precautions given. Differential Diagnosis Differential diagnosis: Likely upper respiratory infection, viral infection, bronchitis and influenza Lab Data Attestation: I reviewed the patient's lab results. Labs: Lab Results 10/07/24 Range/Units 12:40 POC Influenza A Ag Negative (Negative) POC Influenza B Ag Negative (Negative) Critical Care Time Critical Care Time Critical Care Time: No Discharge Plan Discharge Clinical Impression: Upper respiratory infection Qualifiers: URI type: unspecified URI Qualified Code(s): J06.9 - Acute upper respiratory infection, unspecified Patient Disposition: Home, Self-Care Condition: Stable Instructions: Upper Respiratory Infection (DC) Additional Instructions: Your influenza swab is negative today. Your symptoms are likely due to a viral illness, which is not treated with antibiotics. Virus symptoms can last for up to 7-10days. Take Tylenol for pain or fever. Take the Tessalon Perles for cough if needed. Rest and stay hydrated. Follow up with your PCP in 7 days if symptoms are not improving. Go to the ER immediately if you develop shortness of breath, difficulty swallowing, or any other concerning symptoms. Your blood pressure was elevated above 120/80 today at Urgent Care. This puts you above the threshold for follow up. Please schedule a followup visit with your personal physician as soon as possible, for further evaluation and treatment. Even blood pressure exceeding 120/80 may indicate pre-hypertension. Patient Language: Mont[place]erratian Prescriptions: New benzonatate 200 mg capsule 200 mg PO TID PRN (Reason: cough) Qty: 20 0RF No Action allopurinol 300 mg tablet 300 mg PO DAILY aspirin 81 mg Tablet 81 mg PO DAILY metformin 500 mg tablet extended release 24 hr 1,000 mg PO DAILY olmesartan 40 mg tablet 40 mg PO DAILY rosuvastatin 20 mg tablet 20 mg PO DAILY omeprazole 20 mg Tablet,Delayed Release (Dr/Ec) 20 mg PO DAILY Jardiance 25 mg tablet 25 mg PO DAILY Brilinta 90 mg Tablet 90 mg PO Q12HR Qty: 60 11RF metoprolol succinate [Toprol XL] 25 mg Tablet Extended Release 24 Hr 25 mg PO QAM Qty: 30 11RF nitroglycerin [Nitrostat] 0.4 mg Tablet, Sublingual 0.4 mg sublingual Q5MIN PRN (Reason: Chest Pain) Qty: 10 0RF Follow-up/Referrals: PHYSICIAN,MOSAIC TILE MAKER [Primary Care Provider] - Time of Disposition: 13:05
== END 2024-10-07 13:11 | disposition home or self-care (01) ==
PROVIDERS: Emergency Provider Nurse Practitioner
DX: J06.9 Acute upper respiratory infection, unspecified (principal); I12.9 Hypertensive chronic kidney disease with stage 1 through stage 4 chronic kidney disease, or unspecified chronic kidney disease; E11.22 Type 2 diabetes mellitus with diabetic chronic kidney disease; N18.9 Chronic kidney disease, unspecified; I25.10 Atherosclerotic heart disease of native coronary artery without angina pectoris; E78.5 Hyperlipidemia, unspecified; I25.2 Old myocardial infarction; F17.210 Nicotine dependence, cigarettes, uncomplicated; Z79.899 Other long term (current) drug therapy; Z79.84 Long term (current) use of oral hypoglycemic drugs
CPT/HCPCS: 87804; 99213; G0463